=== PATIENT | female | born 1945 | race African-American/Black ===

== ENCOUNTER 2021-01-09 19:39 | Inpatient (IN) | payer MEDICARE, MEDICAID ==
[~2021-01-09] VITALS: Ht 162.6 cm; Wt 93.0 kg
[2021-01-09] MEDS ORDERED: SODIUM CHLORIDE 0.9% 1,000 ML IV ONE (20:00)
[2021-01-09] MEDS ORDERED: ALBUTEROL (0.083%) 2.5MG/3ML NEB HHN STA (20:03)
[2021-01-09] MEDS ORDERED: IPRATROPIUM BROMIDE (0.02%) 0.5MG/2.5ML NEB HHN STA (20:03)
[2021-01-09] MEDS ORDERED: PREDNISONE 20MG TABLET PO STA (20:03)
[2021-01-09] MEDS ORDERED: AZITHROMYCIN 500 MG in DEXT 5% WATER 250 ML IV SCH (20:15)
[2021-01-09] MEDS ORDERED: CEFTRIAXONE 1 G PREMIX 50 ML IV ONE (20:15)
[2021-01-09 20:28] LABS: BASOPHILS % 0.3 % (0.0-2.0); HEMATOCRIT. 42.9 % (36.0-48.0); HEMOGLOBIN. 14.7 g/dL (12.0-16.0); LYMPHOCYTES % 18.2 % (20.0-50.0); MEAN CORPUSCULAR HEMOGLOBIN 30.8 pg (28.0-32.0); MEAN CORPUSCULAR VOLUME 89.7 fL (81.0-99.0); MEAN PLATELET VOLUME 8.5 fl (7.4-10.4); MONOCYTES % 6.5 % (2.0-8.0); PLATELET 184 x1000/uL (130-400); RED BLOOD CELL COUNT 4.78 mill/uL (4.2-5.4); RED CELL DISTRIBUTION WIDTH 14.2 % (11.6-14.6)
[2021-01-09 20:30] LABS: CLARITY URINE CLEAR (CLEAR); COLOR URINE DARK YELLOW (YELLOW); KETONES URINE 1+ (NEGATIVE); LEUKOCYTE ESTERASE URINE NEGATIVE (NEGATIVE); NITRITE URINE NEGATIVE (NEGATIVE); OCCULT BLOOD URINE 2+ (NEGATIVE); PH URINE 5.5 (4.5-8.0); PROTEIN URINE 2+ (NEGATIVE); SPECIFIC GRAVITY URINE 1.023 (1.005-1.030)
[2021-01-09 20:43] LABS: CHLORIDE 107 mEq/L (98-107)
[2021-01-09 20:47] LABS: ETHANOL BLOOD < 10 mg/dL
[2021-01-09 20:52] LABS: CREATINE KINASE 208 IU/L (26-192)
[2021-01-09 21:05] LABS: *AMPHETAMINES SCREEN URINE NEGATIVE (NEGATIVE); *BARBITURATES SCREEN URINE NEGATIVE (NEGATIVE); *BENZODIAZEPINES SCREEN URINE NEGATIVE (NEGATIVE); *COCAINE SCREEN URINE NEGATIVE (NEGATIVE)
[2021-01-09 21:06] LABS: CANNABINOID URINE SCREEN NEGATIVE (NEGATIVE); METHADONE URINE SCREEN NEGATIVE (NEGATIVE); OPIATES URINE SCREEN NEGATIVE (NEGATIVE); PHENCYCLIDINE URINE SCREEN NEGATIVE (NEGATIVE)
[2021-01-09] MEDS ORDERED: SODIUM CHLORIDE 0.9% 500 ML IV ONE (22:00)
[2021-01-10 10:55] VITALS: BP 137/88
[2021-01-10] MEDS ORDERED: LISI-186 MT (11:23)
[2021-01-10] MEDS ORDERED: AMLO2.5T45 MT (11:23)
[2021-01-10] MEDS ORDERED: METF-414 MT (11:23)
[2021-01-10 12:00] VITALS: BP 137/88
[2021-01-10] MEDS ORDERED: DOCUSATE SODIUM 100MG CAPSULE PO PRN (12:00)
[2021-01-10] MEDS ORDERED: MAGNESIUM/ALUMINUM HYDROXIDE/SIMETHICONE 30ML UDC PO PRN (12:00)
[2021-01-10] MEDS ORDERED: CLONIDINE 0.1MG TABLET PO PRN (12:00)
[2021-01-10] MEDS ORDERED: ONDANSETRON HCL 4MG/2ML INJ IV PRN (12:00)
[2021-01-10] MEDS ORDERED: ALBUTEROL 6.7GM HFA INHALER ORI PRN (12:00)
[2021-01-10] MEDS: DEXAMETHASONE 4MG TABLET PO SCH (12:26)
[2021-01-10] MEDS: AZITHROMYCIN 500 MG TABLET PO SCH (12:26)
[2021-01-10] MEDS ORDERED: ENOXAPARIN 40MG/0.4ML SYR SUBCUT SCH (13:00)
[2021-01-10 16:00] VITALS: BP 147/96
[2021-01-10] MEDS ORDERED: GADOTERATE MEGLUMINE 5 MMOL/10 ML VIAL IV ONE (16:00)
[2021-01-10] MEDS ORDERED: SIMV5TAB58 MT (16:58)
[2021-01-10] MEDS ORDERED: LISI2.5T47 MT (16:58)
[2021-01-10] MEDS ORDERED: DEXTROSE 50% WATER 50ML SYRINGE IV PRN ×2 (19:30)
[2021-01-10 20:00] VITALS: BP 141/81
[2021-01-10] MEDS: BLOOD SUGAR DIAGNOSTIC STRIP TEST SCH (20:12)
[2021-01-10] MEDS: ENOXAPARIN 30MG/0.3ML SYR SUBCUT SCH (20:58)
[2021-01-10] MEDS: CEFTRIAXONE 1,000 MG in DEXTROSE 5% WATER 50 ML IV SCH (20:59)
[2021-01-10] MEDS: ACETAMINOPHEN 325MG TABLET PO PRN (20:59)
[2021-01-10] MEDS: ATORVASTATIN CALCIUM 10MG TABLET PO SCH (20:59)
[2021-01-10] MEDS: INSULIN LISPRO 100 UNITS/ML SUBCUT SCH (21:03)
[2021-01-11] VITALS: BP 137/85
[2021-01-11 04:00] VITALS: BP 151/108
[2021-01-11] MEDS: OMEPRAZOLE 20MG CAPSULE EXTENDED RELEASE PO SCH (06:45)
[2021-01-11] MEDS: BLOOD SUGAR DIAGNOSTIC STRIP TEST SCH ×4 (07:15→21:00)
[2021-01-11] MEDS: INSULIN LISPRO 100 UNITS/ML SUBCUT SCH ×4 (07:16→21:00)
[2021-01-11 07:33] LABS: BASOPHILS % 0.1 % (0.0-2.0); HEMATOCRIT. 42.1 % (36.0-48.0); HEMOGLOBIN. 13.9 g/dL (12.0-16.0); LYMPHOCYTES % 15.5 % (20.0-50.0); MEAN CORPUSCULAR HEMOGLOBIN 30.1 pg (28.0-32.0); MEAN CORPUSCULAR VOLUME 90.9 fL (81.0-99.0); MEAN PLATELET VOLUME 8.8 fl (7.4-10.4); MONOCYTES % 4.5 % (2.0-8.0); NEUTROPHILS % 79.9 % (40.0-76.0); PLATELET 173 x1000/uL (130-400); RED BLOOD CELL COUNT 4.63 mill/uL (4.2-5.4); RED CELL DISTRIBUTION WIDTH 14.5 % (11.6-14.6)
[2021-01-11 07:43] LABS: CHLORIDE 108 mEq/L (98-107)
[2021-01-11 07:59] VITALS: BP 124/82
[2021-01-11 08:00] LABS: LDL CHOLESTEROL 87 mg/dL (5-100); PHOSPHORUS 2.4 mg/dL (2.5-4.9)
[2021-01-11 08:01] LABS: T4 FREE 0.94 ng/dL (0.76-1.46)
[2021-01-11 08:02] LABS: HDL CHOLESTEROL 35 mg/dL (40-59)
[2021-01-11] MEDS: DEXAMETHASONE 4MG TABLET PO SCH (08:25)
[2021-01-11] MEDS: LISINOPRIL 2.5MG TABLET PO SCH (08:25)
[2021-01-11] MEDS: AZITHROMYCIN 500 MG TABLET PO SCH (08:25)
[2021-01-11] MEDS: ENOXAPARIN 30MG/0.3ML SYR SUBCUT SCH ×2 (08:25→21:18)
[2021-01-11] MEDS: ACETAMINOPHEN 325MG TABLET PO PRN ×2 (08:26→23:47)
[2021-01-11] MEDS: AMLODIPINE 2.5MG TABLET PO SCH (08:26)
[2021-01-11 12:00] VITALS: BP 113/72
[2021-01-11 16:00] VITALS: BP 118/64
[2021-01-11 20:00] VITALS: BP 124/104
[2021-01-11] MEDS: CEFTRIAXONE 1,000 MG in DEXTROSE 5% WATER 50 ML IV SCH (21:18)
[2021-01-11] MEDS: ATORVASTATIN CALCIUM 10MG TABLET PO SCH (21:18)
[2021-01-12] VITALS: BP 131/69
[2021-01-12 04:00] VITALS: BP 117/66
[2021-01-12] MEDS: BLOOD SUGAR DIAGNOSTIC STRIP TEST SCH ×4 (06:40→21:26)
[2021-01-12] MEDS: OMEPRAZOLE 20MG CAPSULE EXTENDED RELEASE PO SCH (06:41)
[2021-01-12 08:00] VITALS: BP 143/84
[2021-01-12] MEDS: INSULIN LISPRO 100 UNITS/ML SUBCUT SCH ×4 (08:10→21:00)
[2021-01-12] MEDS: AMLODIPINE 2.5MG TABLET PO SCH (08:41)
[2021-01-12] MEDS: AZITHROMYCIN 500 MG TABLET PO SCH (08:41)
[2021-01-12] MEDS: ENOXAPARIN 30MG/0.3ML SYR SUBCUT SCH ×2 (08:41→21:26)
[2021-01-12] MEDS: DEXAMETHASONE 6MG TABLET PO SCH (08:41)
[2021-01-12] MEDS: LISINOPRIL 2.5MG TABLET PO SCH (08:42)
[2021-01-12 10:44] LABS: BASOPHILS % 0.1 % (0.0-2.0); HEMATOCRIT. 39.9 % (36.0-48.0); HEMOGLOBIN. 13.3 g/dL (12.0-16.0); LYMPHOCYTES % 12.3 % (20.0-50.0); MEAN CORPUSCULAR HEMOGLOBIN 30.1 pg (28.0-32.0); MEAN CORPUSCULAR VOLUME 90.2 fL (81.0-99.0); MEAN PLATELET VOLUME 9.1 fl (7.4-10.4); MONOCYTES % 7.2 % (2.0-8.0); NEUTROPHILS % 80.4 % (40.0-76.0); PLATELET 191 x1000/uL (130-400); RED BLOOD CELL COUNT 4.43 mill/uL (4.2-5.4); RED CELL DISTRIBUTION WIDTH 14.3 % (11.6-14.6)
[2021-01-12 10:50] LABS: CHLORIDE 106 mEq/L (98-107)
[2021-01-12 12:00] VITALS: BP 125/70
[2021-01-12 16:00] VITALS: BP 106/82
[2021-01-12 20:00] VITALS: BP 151/90
[2021-01-12] MEDS: CEFTRIAXONE 1,000 MG in DEXTROSE 5% WATER 50 ML IV SCH (21:26)
[2021-01-12] MEDS: ATORVASTATIN CALCIUM 10MG TABLET PO SCH (21:26)
[2021-01-13 00:09] VITALS: BP 136/76
[2021-01-13 04:00] VITALS: BP 120/66
[2021-01-13] MEDS: OMEPRAZOLE 20MG CAPSULE EXTENDED RELEASE PO SCH (06:36)
[2021-01-13] MEDS: BLOOD SUGAR DIAGNOSTIC STRIP TEST SCH ×2 (07:40→12:12)
[2021-01-13 08:00] VITALS: BP 119/64
[2021-01-13] MEDS: INSULIN LISPRO 100 UNITS/ML SUBCUT SCH ×2 (08:10→12:33)
[2021-01-13] MEDS: LISINOPRIL 2.5MG TABLET PO SCH (08:26)
[2021-01-13] MEDS: DEXAMETHASONE 6MG TABLET PO SCH (08:27)
[2021-01-13] MEDS: AMLODIPINE 2.5MG TABLET PO SCH (08:27)
[2021-01-13] MEDS: ENOXAPARIN 30MG/0.3ML SYR SUBCUT SCH (08:27)
[2021-01-13] MEDS: AZITHROMYCIN 500 MG TABLET PO SCH (08:27)
[2021-01-13] MEDS ORDERED: ALBU6.7H9 ORI (08:47)
[2021-01-13 09:26] VITALS: BP 132/81
[2021-01-13 12:00] VITALS: BP 133/83
[2021-01-14] MEDS ORDERED: FAMOTIDINE 20MG TABLET PO SCH (09:00)
== END 2021-01-13 16:22 | disposition home or self-care (01) | DRG 177 ==
LOC: ER 19:39 → 7WST 22:01 → CANRESERV 23:57 → EDRESERV 23:57 → ENRESERV 23:57
PROVIDERS: ADMIT Internal Medicine; ATTEND Internal Medicine
DX: U07.1 COVID-19 (principal); J96.01 Acute respiratory failure with hypoxia; J12.82 Pneumonia due to coronavirus disease 2019; E44.0 Moderate protein-calorie malnutrition; E11.9 Type 2 diabetes mellitus without complications; E87.6 Hypokalemia; I10 Essential (primary) hypertension; W18.30XA Fall on same level, unspecified, initial encounter; D32.9 Benign neoplasm of meninges, unspecified; Z68.35 Body mass index [BMI] 35.0-35.9, adult; Y93.89 Activity, other specified; Y92.89 Other specified places as the place of occurrence of the external cause; Y99.8 Other external cause status
CPT/HCPCS: 36415; 70553; 71045; 80048; 80053; 80061; 80076; 80305; 80320; 81003; 82140; 82550; 82962; 83036; 83605; 83735; 83880; 84100; 84439; 84443; 84484; 85025; 86850; 86900; 87426; 93005; 93970; 94640; 99285; A9577; J0456; J0696; J1650; J1815; J7030; J7040; J7060; J7512; J8540; G0480

== ENCOUNTER 2021-01-16 10:14 | Inpatient (IN) | payer MEDICARE, MEDICAID ==
[~2021-01-16] VITALS: Ht 162.6 cm; Wt 106.1 kg
[~2021-01-16 10:14] MED LIST: ALBU6.7H9 ORI; AMLO2.5T45 MT; LISI2.5T47 MT; METF-414 MT; SIMV5TAB58 MT
[2021-01-16] MEDS ORDERED: IPRATROPIUM BROMIDE (0.02%) 0.5MG/2.5ML NEB HHN STA (10:33)
[2021-01-16] MEDS ORDERED: DEXAMETHASONE 4MG/ML 1ML VIAL IV ONE (10:45)
[2021-01-16] MEDS: ALBUTEROL (0.083%) 2.5MG/3ML NEB HHN SCH ×3 (10:45→12:02)
[2021-01-16 11:01] LABS: HEMOGLOBIN. 15.5 g/dL (12.0-16.0); MEAN CORPUSCULAR HEMOGLOBIN 30.7 pg (28.0-32.0); MEAN CORPUSCULAR VOLUME 90.8 fL (81.0-99.0); MEAN PLATELET VOLUME 8.1 fl (7.4-10.4); PLATELET 386 x1000/uL (130-400); RED BLOOD CELL COUNT 5.06 mill/uL (4.2-5.4); RED CELL DISTRIBUTION WIDTH 14.6 % (11.6-14.6)
[2021-01-16 11:04] LABS: CHLORIDE 104 mEq/L (98-107)
[2021-01-16 11:12] LABS: INR 1.2; PROTHROMBIN TIME 12.4 sec (9.6-11.0)
[2021-01-16] MEDS ORDERED: ASPIRIN 325MG EC TABLET PO SCH (11:45)
[2021-01-16] MEDS ORDERED: POTASSIUM CHLORIDE 20MEQ TABLET SR PO SCH (11:45)
[2021-01-16 12:00] LABS: PLATELET ESTIMATE NORMAL
[2021-01-16] MEDS ORDERED: PIPERACILLIN/TAZ 3.375G PREMIX 50 ML IV ONE (13:15)
[2021-01-16] MEDS ORDERED: ONDANSETRON HCL 4MG/2ML INJ IV PRN (14:15)
[2021-01-16 14:19] LABS: CLARITY URINE CLOUDY (CLEAR); COLOR URINE DARK YELLOW (YELLOW); KETONES URINE 1+ (NEGATIVE); LEUKOCYTE ESTERASE URINE 1+ (NEGATIVE); NITRITE URINE POSITIVE (NEGATIVE); OCCULT BLOOD URINE NEGATIVE (NEGATIVE); PH URINE 5.5 (4.5-8.0); PROTEIN URINE 2+ (NEGATIVE); SPECIFIC GRAVITY URINE 1.027 (1.005-1.030)
[2021-01-16] MEDS: ENOXAPARIN 40MG/0.4ML SYR SUBCUT SCH (14:50)
[2021-01-16 17:04] LABS: BG BASE EXCESS 0.9 mmol/L (-2.0-2.0); BG CARBOXYHEMOGLOBIN 0.8 % (0.5-1.5); BG DEOXYHEMOGLOBIN 3.6 % (0.0-5.0); BG FRACTION INSPIRED OXYGEN 80; BG HCO3 ACT 23.6 mmol/L (22.0-26.0); BG METHEMOGLOBIN 0.3 % (0.0-1.5); BG OXYGEN SATURATION 96.4 % (92.0-98.5); BG OXYHEMOGLOBIN 95.3 % (94.0-97.0); BG PCO2 32.3 mmHg (35.0-45.0); BG PH 7.481 (7.350-7.450); BG PO2 84.5 mmHg (75.0-100.0); BG SAMPLE SITE LEFT BRACHIAL; BG TOTAL HEMOGLOBIN 15.1 g/dL (12.0-18.0); BG TOTAL RESPIRATORY RATE 40 b/min; BG VENT MODE MASK - BIPAP
[2021-01-16] MEDS: ERGOCALCIFEROL 50000UNITS CAPSULE PO SCH (17:42)
[2021-01-16] MEDS: ALBUTEROL 6.7GM HFA INHALER ORI PRN (18:55)
[2021-01-16 21:00] VITALS: BP 134/90
[2021-01-16] MEDS: ASCORBIC ACID 500 MG TABLET PO SCH (22:10)
[2021-01-17] VITALS: BP 131/98
[2021-01-17] MEDS ORDERED: AMLO5TAB88 PO (00:39)
[2021-01-17] MEDS ORDERED: LISI40TA13 PO (00:39)
[2021-01-17] MEDS ORDERED: *PATIENT'S OWN MEDICATION STORAGE XX SCH (01:00)
[2021-01-17 04:00] VITALS: BP 118/85
[2021-01-17 08:00] VITALS: BP 133/91
[2021-01-17] MEDS ORDERED: CEFTRIAXONE 1 G PREMIX 50 ML IV SCH (08:45)
[2021-01-17] MEDS: ASCORBIC ACID 500 MG TABLET PO SCH ×2 (08:48→21:07)
[2021-01-17 08:49] LABS: BG BASE EXCESS 2.6 mmol/L (-2.0-2.0); BG CARBOXYHEMOGLOBIN 0.6 % (0.5-1.5); BG DEOXYHEMOGLOBIN 4.6 % (0.0-5.0); BG FRACTION INSPIRED OXYGEN 100; BG HCO3 ACT 26.1 mmol/L (22.0-26.0); BG METHEMOGLOBIN 0.4 % (0.0-1.5); BG OXYGEN SATURATION 95.4 % (92.0-98.5); BG OXYHEMOGLOBIN 94.4 % (94.0-97.0); BG PH 7.467 (7.350-7.450); BG PO2 75.1 mmHg (75.0-100.0); BG SAMPLE SITE RIGHT RADIAL; BG TOTAL RESPIRATORY RATE 34 b/min; BG VENT MODE MASK - BIPAP
[2021-01-17] MEDS ORDERED: DEXAMETHASONE 4MG TABLET PO SCH (09:00)
[2021-01-17 10:53] LABS: HEMATOCRIT. 43.6 % (36.0-48.0); HEMOGLOBIN. 14.3 g/dL (12.0-16.0); MEAN CORPUSCULAR HEMOGLOBIN 29.8 pg (28.0-32.0); MEAN CORPUSCULAR VOLUME 90.9 fL (81.0-99.0); MEAN PLATELET VOLUME 8.1 fl (7.4-10.4); PLATELET 393 x1000/uL (130-400); RED CELL DISTRIBUTION WIDTH 14.7 % (11.6-14.6)
[2021-01-17 11:02] LABS: CHLORIDE 108 mEq/L (98-107)
[2021-01-17] MEDS: CEFTRIAXONE 1,000 MG in DEXTROSE 5% WATER 50 ML IV SCH (11:34)
[2021-01-17 12:00] VITALS: BP 107/80
[2021-01-17] MEDS: ENOXAPARIN 40MG/0.4ML SYR SUBCUT SCH (14:21)
[2021-01-17 16:00] VITALS: BP 129/91
[2021-01-17 16:56] LABS: PLATELET ESTIMATE NORMAL
[2021-01-17 20:00] VITALS: BP 174/118
[2021-01-17] MEDS: CLONIDINE 0.1MG TABLET PO PRN (21:07)
[2021-01-17] MEDS: ZOLPIDEM TARTRATE 5MG TABLET PO PRN (21:07)
[2021-01-17] MEDS: ACETAMINOPHEN 325MG TABLET PO PRN (21:07)
[2021-01-17] MEDS ORDERED: GUAIFENESIN-DM 200MG-20MG/10ML UDC PO PRN (22:45)
[2021-01-18] VITALS: BP 130/87
[2021-01-18 04:00] VITALS: BP 141/98
[2021-01-18 08:00] VITALS: BP 161/106
[2021-01-18] MEDS: ASCORBIC ACID 500 MG TABLET PO SCH ×2 (10:05→20:15)
[2021-01-18] MEDS: CEFTRIAXONE 1,000 MG in DEXTROSE 5% WATER 50 ML IV SCH (10:05)
[2021-01-18] MEDS: DEXAMETHASONE 10 MG/ML VIAL IV SCH (10:06)
[2021-01-18] MEDS: CLONIDINE 0.1MG TABLET PO PRN ×2 (10:06→16:56)
[2021-01-18 12:00] VITALS: BP 130/64
[2021-01-18 16:00] VITALS: BP 165/88
[2021-01-18] MEDS: ENOXAPARIN 40MG/0.4ML SYR SUBCUT SCH (16:56)
[2021-01-18] MEDS: ALBUTEROL 6.7GM HFA INHALER ORI PRN (16:57)
[2021-01-18 20:00] VITALS: BP 89/42
[2021-01-18] MEDS: ACETAMINOPHEN 325MG TABLET PO PRN (23:35)
[2021-01-19] VITALS: BP 142/96
[2021-01-19 04:00] VITALS: BP 133/91
[2021-01-19 08:00] VITALS: BP 147/86
[2021-01-19] MEDS: DEXAMETHASONE 10 MG/ML VIAL IV SCH (09:50)
[2021-01-19] MEDS: ASCORBIC ACID 500 MG TABLET PO SCH ×2 (09:50→20:49)
[2021-01-19 12:00] VITALS: BP 139/82
[2021-01-19] MEDS: ENOXAPARIN 30MG/0.3ML SYR SUBCUT SCH ×2 (12:10→20:50)
[2021-01-19] MEDS: CEFTRIAXONE 1,000 MG in DEXTROSE 5% WATER 50 ML IV SCH (12:10)
[2021-01-19 16:00] VITALS: BP 129/86
[2021-01-19 20:00] VITALS: BP 159/103
[2021-01-19] MEDS: CLONIDINE 0.1MG TABLET PO PRN (20:50)
[2021-01-20] VITALS: BP 134/95
[2021-01-20] MEDS: ZOLPIDEM TARTRATE 5MG TABLET PO PRN (00:57)
[2021-01-20 04:00] VITALS: BP 131/79
[2021-01-20 08:00] VITALS: BP 142/95
[2021-01-20] MEDS: ENOXAPARIN 30MG/0.3ML SYR SUBCUT SCH ×2 (09:53→20:25)
[2021-01-20] MEDS: DEXAMETHASONE 10 MG/ML VIAL IV SCH (09:54)
[2021-01-20] MEDS: ASCORBIC ACID 500 MG TABLET PO SCH ×2 (09:54→20:25)
[2021-01-20] MEDS: CEFTRIAXONE 1,000 MG in DEXTROSE 5% WATER 50 ML IV SCH (11:37)
[2021-01-20 12:00] VITALS: BP 136/95
[2021-01-20 16:00] VITALS: BP 133/90
[2021-01-20 20:00] VITALS: BP 136/91
[2021-01-21] VITALS: BP 160/99
[2021-01-21] MEDS: ZOLPIDEM TARTRATE 5MG TABLET PO PRN (01:42)
[2021-01-21 04:00] VITALS: BP 117/66
[2021-01-21 08:00] VITALS: BP 165/103
[2021-01-21] MEDS: ENOXAPARIN 30MG/0.3ML SYR SUBCUT SCH ×2 (09:28→21:51)
[2021-01-21] MEDS: DEXAMETHASONE 10 MG/ML VIAL IV SCH (09:28)
[2021-01-21] MEDS: ASCORBIC ACID 500 MG TABLET PO SCH ×2 (09:28→21:52)
[2021-01-21] MEDS: CEFTRIAXONE 1,000 MG in DEXTROSE 5% WATER 50 ML IV SCH (11:51)
[2021-01-21 12:00] VITALS: BP 155/103
[2021-01-21 16:00] VITALS: BP 141/75
[2021-01-21 20:00] VITALS: BP 125/72
[2021-01-22] VITALS: BP 116/65
[2021-01-22 04:00] VITALS: BP 143/96
[2021-01-22 06:52] LABS: CHLORIDE 120 mEq/L (98-107)
[2021-01-22 07:35] LABS: HEMATOCRIT. 53.6 % (36.0-48.0); HEMOGLOBIN. 16.1 g/dL (12.0-16.0); MEAN CORPUSCULAR HEMOGLOBIN 30.1 pg (28.0-32.0); MEAN CORPUSCULAR VOLUME 100.3 fL (81.0-99.0); MEAN PLATELET VOLUME 8.9 fl (7.4-10.4); PLATELET 242 x1000/uL (130-400); RED BLOOD CELL COUNT 5.34 mill/uL (4.2-5.4); RED CELL DISTRIBUTION WIDTH 16.3 % (11.6-14.6)
[2021-01-22 08:00] VITALS: BP 145/95
[2021-01-22] MEDS: ASCORBIC ACID 500 MG TABLET PO SCH ×2 (08:10→22:04)
[2021-01-22] MEDS: DEXAMETHASONE 10 MG/ML VIAL IV SCH (08:10)
[2021-01-22] MEDS: ENOXAPARIN 30MG/0.3ML SYR SUBCUT SCH ×2 (08:11→22:06)
[2021-01-22] MEDS: CEFTRIAXONE 1,000 MG in DEXTROSE 5% WATER 50 ML IV SCH (11:32)
[2021-01-22 12:00] VITALS: BP 142/94
[2021-01-22 16:00] VITALS: BP 127/82
[2021-01-22] MEDS: DEXTROSE 5% WATER 1,000 ML IV SCH (17:18)
[2021-01-22 20:00] VITALS: BP 148/101
[2021-01-22 21:33] LABS: NUCLEATED RED BLOOD CELLS 1 /100 WBC; PLATELET ESTIMATE NORMAL
[2021-01-22] MEDS: ACETAMINOPHEN 325MG TABLET PO PRN (22:31)
[2021-01-23] VITALS (7 sets, daily range): BP systolic 143–159; BP diastolic 90–106
[2021-01-23] MEDS: ASCORBIC ACID 500 MG TABLET PO SCH ×2 (08:43→21:32)
[2021-01-23] MEDS: DEXAMETHASONE 10 MG/ML VIAL IV SCH (08:43)
[2021-01-23] MEDS: ENOXAPARIN 30MG/0.3ML SYR SUBCUT SCH ×2 (08:43→21:32)
[2021-01-23] MEDS: ALBUTEROL 6.7GM HFA INHALER ORI PRN (08:44)
[2021-01-23 08:54] LABS: BG BASE EXCESS 4.6 mmol/L (-2.0-2.0); BG CARBOXYHEMOGLOBIN 0.7 % (0.5-1.5); BG FRACTION INSPIRED OXYGEN 100; BG HCO3 ACT 28.3 mmol/L (22.0-26.0); BG METHEMOGLOBIN 0.1 % (0.0-1.5); BG OXYHEMOGLOBIN 95.2 % (94.0-97.0); BG PCO2 38.9 mmHg (35.0-45.0); BG PH 7.479 (7.350-7.450); BG PO2 77.8 mmHg (75.0-100.0); BG SAMPLE SITE RIGHT RADIAL; BG TOTAL HEMOGLOBIN 15.4 g/dL (12.0-18.0); BG VENT MODE MASK - BIPAP
[2021-01-23 10:14] LABS: CHLORIDE 119 mEq/L (98-107)
[2021-01-23] MEDS: DEXTROSE 5% WATER 1,000 ML IV SCH (12:30)
[2021-01-23] MEDS: ERGOCALCIFEROL 50000UNITS CAPSULE PO SCH (15:54)
[2021-01-24] VITALS (26 sets, daily range): BP systolic 40–185; BP diastolic 24–116
[2021-01-24 07:25] LABS: HEMATOCRIT. 51.5 % (36.0-48.0); MEAN CORPUSCULAR HEMOGLOBIN 29.7 pg (28.0-32.0); MEAN CORPUSCULAR VOLUME 95.8 fL (81.0-99.0); MEAN PLATELET VOLUME 8.9 fl (7.4-10.4); PLATELET 280 x1000/uL (130-400); RED BLOOD CELL COUNT 5.38 mill/uL (4.2-5.4); RED CELL DISTRIBUTION WIDTH 15.4 % (11.6-14.6)
[2021-01-24 07:37] LABS: CHLORIDE 119 mEq/L (98-107)
[2021-01-24] MEDS ORDERED: SUCCINYLCHOLINE CHLORIDE 200MG/10ML IV ONE (08:37)
[2021-01-24] MEDS ORDERED: ETOMIDATE 2MG/ML 10ML VIAL IV ONE (08:37)
[2021-01-24] MEDS: DEXTROSE 5% WATER 1,000 ML IV SCH (09:35)
[2021-01-24] MEDS: ASCORBIC ACID 500 MG TABLET PO SCH ×2 (09:35→21:00)
[2021-01-24] MEDS: ACETAMINOPHEN 325MG TABLET PO PRN (09:36)
[2021-01-24] MEDS: ENOXAPARIN 30MG/0.3ML SYR SUBCUT SCH ×2 (09:36→21:55)
[2021-01-24] MEDS: DEXAMETHASONE 10 MG/ML VIAL IV SCH (11:13)
[2021-01-24 19:44] LABS: BG BASE EXCESS 3.4 mmol/L (-2.0-2.0); BG CARBOXYHEMOGLOBIN 1.3 % (0.5-1.5); BG DEOXYHEMOGLOBIN 7.5 % (0.0-5.0); BG FRACTION INSPIRED OXYGEN 100; BG HCO3 ACT 28.6 mmol/L (22.0-26.0); BG METHEMOGLOBIN 0.5 % (0.0-1.5); BG OXYGEN SATURATION 92.4 % (92.0-98.5); BG OXYHEMOGLOBIN 90.7 % (94.0-97.0); BG PCO2 45.3 mmHg (35.0-45.0); BG PH 7.418 (7.350-7.450); BG PO2 64.8 mmHg (75.0-100.0); BG SAMPLE SITE RIGHT RADIAL; BG TOTAL HEMOGLOBIN 15.9 g/dL (12.0-18.0); BG TOTAL RESPIRATORY RATE 46 b/min; BG VENT MODE MASK - BIPAP
[2021-01-24] MEDS: PROPOFOL 10MG/ML 100ML 100 ML IV PRN (21:17)
[2021-01-24] MEDS: PHENYLEPHRINE 100 MG in DEXT 5% WATER 240 ML IV PRN (21:20)
[2021-01-24 22:26] LABS: PLATELET ESTIMATE NORMAL
[2021-01-24 23:23] LABS: BG BASE EXCESS -2.7 mmol/L (-2.0-2.0); BG CARBOXYHEMOGLOBIN 0.9 % (0.5-1.5); BG DEOXYHEMOGLOBIN 2.6 % (0.0-5.0); BG FRACTION INSPIRED OXYGEN 100; BG HCO3 ACT 22.4 mmol/L (22.0-26.0); BG METHEMOGLOBIN 0.5 % (0.0-1.5); BG OXYGEN SATURATION 97.4 % (92.0-98.5); BG PH 7.366 (7.350-7.450); BG PO2 100.9 mmHg (75.0-100.0); BG SAMPLE SITE RIGHT RADIAL; BG TOTAL HEMOGLOBIN 15.6 g/dL (12.0-18.0); BG VENT MODE VENT - AC
[2021-01-25] VITALS (97 sets, daily range): BP systolic 55–145; BP diastolic 25–104
[2021-01-25] MEDS: PROPOFOL 10MG/ML 100ML 100 ML IV PRN (00:43)
[2021-01-25] MEDS: NOREPINEPHRINE 32 MG in DEXT 5% WATER 218 ML IV PRN (00:45)
[2021-01-25] MEDS: VASOPRESSIN 20 UNIT in SODIUM CHLORIDE 0.9% 99 ML IV PRN ×2 (01:39→08:37)
[2021-01-25] MEDS: FENTANYL CITRATE/PF 2,500 MCG in SODIUM CHLORIDE 0.9% 200 ML IV PRN (01:49)
[2021-01-25] MEDS: MIDAZOLAM HCL 100 MG in SODIUM CHLORIDE 0.9% 80 ML IV PRN ×2 (01:50→16:32)
[2021-01-25] MEDS: DEXTROSE 5% WATER 1,000 ML IV SCH ×2 (03:58→20:27)
[2021-01-25] MEDS: PHENYLEPHRINE 100 MG in DEXT 5% WATER 240 ML IV PRN ×2 (04:21→17:51)
[2021-01-25] MEDS: IPRATROPIUM/ALBUTEROL 0.5-3(2.5)MG/3ML NEB HHN SCH ×5 (04:40→20:30)
[2021-01-25 07:52] LABS: BG BASE EXCESS 0.7 mmol/L (-2.0-2.0); BG CARBOXYHEMOGLOBIN 0.4 % (0.5-1.5); BG DEOXYHEMOGLOBIN 8.6 % (0.0-5.0); BG HCO3 ACT 24.6 mmol/L (22.0-26.0); BG METHEMOGLOBIN 0.2 % (0.0-1.5); BG OXYGEN SATURATION 91.3 % (92.0-98.5); BG OXYHEMOGLOBIN 90.8 % (94.0-97.0); BG PCO2 37.4 mmHg (35.0-45.0); BG PH 7.436 (7.350-7.450); BG PO2 59.4 mmHg (75.0-100.0); BG SAMPLE SITE RIGHT RADIAL; BG TOTAL HEMOGLOBIN 15.1 g/dL (12.0-18.0); BG VENT MODE VENT - AC
[2021-01-25] MEDS: ASCORBIC ACID 500 MG TABLET PO SCH ×2 (08:37→20:28)
[2021-01-25] MEDS: DEXAMETHASONE 10 MG/ML VIAL IV SCH (08:37)
[2021-01-25] MEDS: ENOXAPARIN 30MG/0.3ML SYR SUBCUT SCH (08:38)
[2021-01-25 09:15] LABS: BASOPHILS % 0.2 % (0.0-2.0); EOSINOPHILS % 0.3 % (0.0-5.0); HEMATOCRIT. 44.1 % (36.0-48.0); HEMOGLOBIN. 14.2 g/dL (12.0-16.0); LYMPHOCYTES % 9.6 % (20.0-50.0); MEAN CORPUSCULAR HEMOGLOBIN 30.6 pg (28.0-32.0); MEAN PLATELET VOLUME 9.2 fl (7.4-10.4); MONOCYTES % 3.2 % (2.0-8.0); NEUTROPHILS % 86.7 % (40.0-76.0); PLATELET 247 x1000/uL (130-400); RED BLOOD CELL COUNT 4.65 mill/uL (4.2-5.4); RED CELL DISTRIBUTION WIDTH 15.1 % (11.6-14.6)
[2021-01-25] MEDS: PANTOPRAZOLE SODIUM 40 MG/VIAL IV SCH (10:15)
[2021-01-25] MEDS: ACETAMINOPHEN 325MG TABLET PO PRN ×2 (10:16→18:23)
[2021-01-25] MEDS: CEFEPIME 1,000 MG in DEXTROSE 5% WATER 50 ML IV SCH (13:17)
[2021-01-26] VITALS (98 sets, daily range): BP systolic 89–164; BP diastolic 54–105
[2021-01-26] MEDS: CEFEPIME 1,000 MG in DEXTROSE 5% WATER 50 ML IV SCH ×2 (00:17→12:12)
[2021-01-26] MEDS: PHENYLEPHRINE 100 MG in DEXT 5% WATER 240 ML IV PRN ×3 (00:39→20:45)
[2021-01-26] MEDS: IPRATROPIUM/ALBUTEROL 0.5-3(2.5)MG/3ML NEB HHN SCH ×6 (00:41→21:19)
[2021-01-26] MEDS: ACETAMINOPHEN 325MG TABLET PO PRN ×2 (03:22→10:21)
[2021-01-26 05:51] LABS: HEMOGLOBIN. 13.5 g/dL (12.0-16.0); MEAN CORPUSCULAR HEMOGLOBIN 30.4 pg (28.0-32.0); MEAN CORPUSCULAR VOLUME 94.1 fL (81.0-99.0); MEAN PLATELET VOLUME 9.7 fl (7.4-10.4); PLATELET 171 x1000/uL (130-400); RED BLOOD CELL COUNT 4.46 mill/uL (4.2-5.4); RED CELL DISTRIBUTION WIDTH 14.9 % (11.6-14.6)
[2021-01-26] MEDS: ASCORBIC ACID 500 MG TABLET PO SCH ×2 (08:00→20:22)
[2021-01-26] MEDS: PANTOPRAZOLE SODIUM 40 MG/VIAL IV SCH (08:00)
[2021-01-26] MEDS: DEXAMETHASONE 10 MG/ML VIAL IV SCH (08:00)
[2021-01-26] MEDS: ENOXAPARIN 40MG/0.4ML SYR SUBCUT SCH (08:01)
[2021-01-26] MEDS: MIDAZOLAM HCL 100 MG in SODIUM CHLORIDE 0.9% 80 ML IV PRN ×2 (08:28→20:44)
[2021-01-26 09:27] LABS: BG BASE EXCESS -0.8 mmol/L (-2.0-2.0); BG CARBOXYHEMOGLOBIN 0.9 % (0.5-1.5); BG FRACTION INSPIRED OXYGEN 100; BG HCO3 ACT 27.5 mmol/L (22.0-26.0); BG METHEMOGLOBIN 0.2 % (0.0-1.5); BG OXYHEMOGLOBIN 95.9 % (94.0-97.0); BG PCO2 61.3 mmHg (35.0-45.0); BG PO2 102.3 mmHg (75.0-100.0); BG SAMPLE SITE LEFT RADIAL; BG TOTAL HEMOGLOBIN 14.3 g/dL (12.0-18.0); BG TOTAL RESPIRATORY RATE 16 b/min; BG VENT MODE VENT - AC
[2021-01-26] MEDS: FENTANYL CITRATE/PF 2,500 MCG in SODIUM CHLORIDE 0.9% 200 ML IV PRN (09:42)
[2021-01-26] MEDS: DEXTROSE 5% WATER 1,000 ML IV SCH ×2 (10:21→20:22)
[2021-01-26] MEDS ORDERED: BISACODYL 5MG TABLET PO NR (11:30)
[2021-01-26] MEDS ORDERED: BISACODYL 10MG SUPP PR SCH (12:00)
[2021-01-26 14:02] LABS: PLATELET ESTIMATE NORMAL
[2021-01-27] VITALS (98 sets, daily range): BP systolic 86–154; BP diastolic 48–96
[2021-01-27] MEDS: CEFEPIME 1,000 MG in DEXTROSE 5% WATER 50 ML IV SCH ×2 (00:02→12:37)
[2021-01-27] MEDS: IPRATROPIUM/ALBUTEROL 0.5-3(2.5)MG/3ML NEB HHN SCH ×6 (00:42→21:16)
[2021-01-27] MEDS: FENTANYL CITRATE/PF 2,500 MCG in SODIUM CHLORIDE 0.9% 200 ML IV PRN ×2 (02:38→22:43)
[2021-01-27] MEDS: NOREPINEPHRINE 32 MG in DEXT 5% WATER 218 ML IV PRN (03:39)
[2021-01-27 05:23] LABS: HEMATOCRIT. 39.7 % (36.0-48.0); MEAN CORPUSCULAR HEMOGLOBIN 30.6 pg (28.0-32.0); MEAN CORPUSCULAR VOLUME 93.1 fL (81.0-99.0); PLATELET 142 x1000/uL (130-400); RED BLOOD CELL COUNT 4.26 mill/uL (4.2-5.4); RED CELL DISTRIBUTION WIDTH 14.6 % (11.6-14.6)
[2021-01-27 05:30] LABS: CHLORIDE 106 mEq/L (98-107)
[2021-01-27] MEDS: MIDAZOLAM HCL 100 MG in SODIUM CHLORIDE 0.9% 80 ML IV PRN ×2 (06:44→20:40)
[2021-01-27 07:21] LABS: PLATELET ESTIMATE NORMAL
[2021-01-27] MEDS: ENOXAPARIN 40MG/0.4ML SYR SUBCUT SCH (08:12)
[2021-01-27] MEDS: PANTOPRAZOLE SODIUM 40 MG/VIAL IV SCH (08:13)
[2021-01-27] MEDS: DEXAMETHASONE 10 MG/ML VIAL IV SCH (08:13)
[2021-01-27] MEDS: ASCORBIC ACID 500 MG TABLET PO SCH ×2 (08:13→21:32)
[2021-01-27] MEDS ORDERED: BISACODYL 5MG TABLET PO PRN (09:00)
[2021-01-27 10:22] LABS: BG SAMPLE SITE L RAD; BG TIDAL VOLUME(mL) 500 mL; BG TOTAL RESPIRATORY RATE 20 b/min; BG VENT MODE VENT/AC; BG VENT RATE 20 set
[2021-01-27 10:23] LABS: BG PCO2 64.9 mmHg (35.0-45.0); BG PH 7.265 (7.350-7.450); BG PO2 167.8 mmHg (75.0-100.0)
[2021-01-27 10:24] LABS: BG BASE EXCESS 0.3 mmol/L (-2.0-2.0); BG CARBOXYHEMOGLOBIN 1.3 % (0.5-1.5); BG HCO3 ACT 28.8 mmol/L (22.0-26.0); BG OXYGEN SATURATION 99.3 % (92.0-98.5); BG OXYHEMOGLOBIN 97.5 % (94.0-97.0); BG TOTAL HEMOGLOBIN 13.5 g/dL (12.0-18.0)
[2021-01-27 10:25] LABS: BG METHEMOGLOBIN 0.5 % (0.0-1.5)
[2021-01-27] MEDS: DEXTROSE 5% WATER 1,000 ML IV SCH ×2 (12:05→21:32)
[2021-01-27] MEDS: METOCLOPRAMIDE HCL 10MG/2ML VIAL IV SCH ×2 (12:37→18:00)
[2021-01-27] MEDS ORDERED: DEXTROSE 50% WATER 50ML SYRINGE IV PRN (15:00)
[2021-01-27] MEDS ORDERED: INSULIN LISPRO 100 UNITS/ML SUBCUT SCH (17:00)
[2021-01-27] MEDS: BLOOD SUGAR DIAGNOSTIC STRIP TEST SCH (17:14)
[2021-01-27] MEDS: BISACODYL 10MG SUPP PR PRN (17:59)
[2021-01-27] MEDS: INSULIN LISPRO 100 UNITS/ML SUBCUT SCH (18:02)
[2021-01-28] VITALS (89 sets, daily range): BP systolic 85–168; BP diastolic 24–93
[2021-01-28] MEDS: BLOOD SUGAR DIAGNOSTIC STRIP TEST SCH ×4 (00:12→18:13)
[2021-01-28] MEDS: CEFEPIME 1,000 MG in DEXTROSE 5% WATER 50 ML IV SCH ×2 (00:18→14:35)
[2021-01-28] MEDS: METOCLOPRAMIDE HCL 10MG/2ML VIAL IV SCH ×4 (00:18→18:17)
[2021-01-28] MEDS: INSULIN LISPRO 100 UNITS/ML SUBCUT SCH ×4 (00:19→18:16)
[2021-01-28] MEDS: IPRATROPIUM/ALBUTEROL 0.5-3(2.5)MG/3ML NEB HHN SCH ×5 (00:25→21:03)
[2021-01-28 05:29] LABS: HEMATOCRIT. 35.9 % (36.0-48.0); HEMOGLOBIN. 11.7 g/dL (12.0-16.0); MEAN CORPUSCULAR VOLUME 92.2 fL (81.0-99.0); PLATELET 145 x1000/uL (130-400); RED BLOOD CELL COUNT 3.89 mill/uL (4.2-5.4); RED CELL DISTRIBUTION WIDTH 14.1 % (11.6-14.6)
[2021-01-28 05:31] LABS: CHLORIDE 107 mEq/L (98-107)
[2021-01-28] MEDS: NOREPINEPHRINE 32 MG in DEXT 5% WATER 218 ML IV PRN (05:43)
[2021-01-28 07:08] LABS: PLATELET ESTIMATE NORMAL
[2021-01-28] MEDS: ENOXAPARIN 40MG/0.4ML SYR SUBCUT SCH (08:36)
[2021-01-28] MEDS: ASCORBIC ACID 500 MG TABLET PO SCH ×2 (08:36→21:15)
[2021-01-28] MEDS: DEXAMETHASONE 10 MG/ML VIAL IV SCH (08:36)
[2021-01-28] MEDS: PANTOPRAZOLE SODIUM 40 MG/VIAL IV SCH (08:36)
[2021-01-28 09:45] LABS: BG BASE EXCESS 2.5 mmol/L (-2.0-2.0); BG CARBOXYHEMOGLOBIN 0.7 % (0.5-1.5); BG DEOXYHEMOGLOBIN 2.7 % (0.0-5.0); BG FRACTION INSPIRED OXYGEN 70; BG HCO3 ACT 29.4 mmol/L (22.0-26.0); BG METHEMOGLOBIN 0.4 % (0.0-1.5); BG OXYGEN SATURATION 97.3 % (92.0-98.5); BG OXYHEMOGLOBIN 96.2 % (94.0-97.0); BG PCO2 55.6 mmHg (35.0-45.0); BG PH 7.341 (7.350-7.450); BG PO2 100.1 mmHg (75.0-100.0); BG SAMPLE SITE LEFT RADIAL; BG TOTAL HEMOGLOBIN 12.5 g/dL (12.0-18.0); BG VENT MODE VENT - AC
[2021-01-28] MEDS: DEXTROSE 5% WATER 1,000 ML IV SCH ×2 (09:45→23:12)
[2021-01-28] MEDS: DOCUSATE SODIUM SUGAR FREE 100MG/10ML UDC NG SCH (10:00)
[2021-01-28] MEDS: MIDAZOLAM HCL 100 MG in SODIUM CHLORIDE 0.9% 80 ML IV PRN (10:08)
[2021-01-28] MEDS: INSULIN GLARGINE UD 100 UNITS/ML SYR SUBCUT SCH ×2 (11:44→21:16)
[2021-01-28] MEDS: FENTANYL CITRATE/PF 2,500 MCG in SODIUM CHLORIDE 0.9% 200 ML IV PRN (11:46)
[2021-01-28] MEDS: MIDODRINE HCL 5MG TABLET PO SCH ×2 (14:35→16:40)
[2021-01-29] VITALS (94 sets, daily range): BP systolic 89–125; BP diastolic 53–73
[2021-01-29] MEDS: IPRATROPIUM/ALBUTEROL 0.5-3(2.5)MG/3ML NEB HHN SCH ×6 (01:03→21:04)
[2021-01-29] MEDS: METOCLOPRAMIDE HCL 10MG/2ML VIAL IV SCH ×4 (01:31→18:00)
[2021-01-29] MEDS: CEFEPIME 1,000 MG in DEXTROSE 5% WATER 50 ML IV SCH ×2 (02:02→12:05)
[2021-01-29] MEDS: MIDAZOLAM HCL 100 MG in SODIUM CHLORIDE 0.9% 80 ML IV PRN ×2 (05:00→23:12)
[2021-01-29 05:38] LABS: CHLORIDE 105 mEq/L (98-107)
[2021-01-29 05:39] LABS: HEMATOCRIT. 33.3 % (36.0-48.0); HEMOGLOBIN. 10.9 g/dL (12.0-16.0); MEAN CORPUSCULAR HEMOGLOBIN 30.1 pg (28.0-32.0); MEAN CORPUSCULAR VOLUME 91.9 fL (81.0-99.0); MEAN PLATELET VOLUME 9.8 fl (7.4-10.4); PLATELET 142 x1000/uL (130-400); RED BLOOD CELL COUNT 3.62 mill/uL (4.2-5.4); RED CELL DISTRIBUTION WIDTH 13.9 % (11.6-14.6)
[2021-01-29] MEDS: BLOOD SUGAR DIAGNOSTIC STRIP TEST SCH ×4 (06:22→18:23)
[2021-01-29] MEDS: INSULIN LISPRO 100 UNITS/ML SUBCUT SCH ×4 (06:23→18:00)
[2021-01-29 07:51] LABS: PLATELET ESTIMATE NORMAL
[2021-01-29 07:59] LABS: BG BASE EXCESS 1.7 mmol/L (-2.0-2.0); BG CARBOXYHEMOGLOBIN 0.5 % (0.5-1.5); BG DEOXYHEMOGLOBIN 8.7 % (0.0-5.0); BG HCO3 ACT 28.2 mmol/L (22.0-26.0); BG METHEMOGLOBIN 0.3 % (0.0-1.5); BG OXYGEN SATURATION 91.2 % (92.0-98.5); BG OXYHEMOGLOBIN 90.5 % (94.0-97.0); BG PCO2 52.5 mmHg (35.0-45.0); BG PH 7.348 (7.350-7.450); BG PO2 61.2 mmHg (75.0-100.0); BG SAMPLE SITE RIGHT RADIAL; BG TOTAL HEMOGLOBIN 12.7 g/dL (12.0-18.0); BG VENT MODE VENT - AC
[2021-01-29] MEDS: FENTANYL CITRATE/PF 2,500 MCG in SODIUM CHLORIDE 0.9% 200 ML IV PRN (08:07)
[2021-01-29] MEDS: PANTOPRAZOLE SODIUM 40 MG/VIAL IV SCH (08:14)
[2021-01-29] MEDS: DEXAMETHASONE 10 MG/ML VIAL IV SCH (08:14)
[2021-01-29] MEDS: ENOXAPARIN 40MG/0.4ML SYR SUBCUT SCH (08:14)
[2021-01-29] MEDS: DOCUSATE SODIUM SUGAR FREE 100MG/10ML UDC NG SCH (08:14)
[2021-01-29] MEDS: ASCORBIC ACID 500 MG TABLET PO SCH ×2 (08:14→22:07)
[2021-01-29] MEDS: MIDODRINE HCL 5MG TABLET PO SCH ×3 (08:14→18:00)
[2021-01-29] MEDS: INSULIN GLARGINE UD 100 UNITS/ML SYR SUBCUT SCH ×2 (09:48→22:08)
[2021-01-29] MEDS: DEXTROSE 5% WATER 1,000 ML IV SCH ×2 (12:14→23:13)
[2021-01-30] VITALS (94 sets, daily range): BP systolic 97–126; BP diastolic 50–75
[2021-01-30] MEDS: METOCLOPRAMIDE HCL 10MG/2ML VIAL IV SCH ×5 (00:33→23:25)
[2021-01-30] MEDS: BLOOD SUGAR DIAGNOSTIC STRIP TEST SCH ×5 (00:33→23:36)
[2021-01-30] MEDS: INSULIN LISPRO 100 UNITS/ML SUBCUT SCH ×5 (00:45→23:35)
[2021-01-30] MEDS: CEFEPIME 1,000 MG in DEXTROSE 5% WATER 50 ML IV SCH ×2 (01:00→12:51)
[2021-01-30] MEDS: IPRATROPIUM/ALBUTEROL 0.5-3(2.5)MG/3ML NEB HHN SCH ×6 (01:37→20:49)
[2021-01-30] MEDS: FENTANYL CITRATE/PF 2,500 MCG in SODIUM CHLORIDE 0.9% 200 ML IV PRN ×2 (05:10→22:00)
[2021-01-30 05:45] LABS: HEMATOCRIT. 32.9 % (36.0-48.0); HEMOGLOBIN. 10.8 g/dL (12.0-16.0); MEAN CORPUSCULAR VOLUME 91.6 fL (81.0-99.0); MEAN PLATELET VOLUME 9.4 fl (7.4-10.4); PLATELET 158 x1000/uL (130-400); RED BLOOD CELL COUNT 3.59 mill/uL (4.2-5.4); RED CELL DISTRIBUTION WIDTH 14.3 % (11.6-14.6)
[2021-01-30 05:51] LABS: CHLORIDE 104 mEq/L (98-107)
[2021-01-30 08:08] LABS: BG BASE EXCESS 1.9 mmol/L (-2.0-2.0); BG CARBOXYHEMOGLOBIN 0.6 % (0.5-1.5); BG DEOXYHEMOGLOBIN 9.9 % (0.0-5.0); BG HCO3 ACT 27.8 mmol/L (22.0-26.0); BG METHEMOGLOBIN 0.3 % (0.0-1.5); BG OXYHEMOGLOBIN 89.2 % (94.0-97.0); BG PCO2 48.7 mmHg (35.0-45.0); BG PH 7.374 (7.350-7.450); BG PO2 57.9 mmHg (75.0-100.0); BG SAMPLE SITE LEFT RADIAL; BG TOTAL HEMOGLOBIN 12.3 g/dL (12.0-18.0); BG VENT MODE VENT - AC
[2021-01-30 09:38] LABS: PLATELET ESTIMATE NORMAL
[2021-01-30] MEDS: PANTOPRAZOLE SODIUM 40 MG/VIAL IV SCH (10:00)
[2021-01-30] MEDS: DEXAMETHASONE 10 MG/ML VIAL IV SCH (10:01)
[2021-01-30] MEDS: MIDODRINE HCL 5MG TABLET PO SCH ×3 (10:02→18:29)
[2021-01-30] MEDS: ASCORBIC ACID 500 MG TABLET PO SCH ×2 (10:02→21:00)
[2021-01-30] MEDS: ENOXAPARIN 40MG/0.4ML SYR SUBCUT SCH (10:03)
[2021-01-30] MEDS: DOCUSATE SODIUM SUGAR FREE 100MG/10ML UDC NG SCH (10:04)
[2021-01-30] MEDS: INSULIN GLARGINE UD 100 UNITS/ML SYR SUBCUT SCH ×2 (11:38→22:13)
[2021-01-30] MEDS ORDERED: BISACODYL 10MG SUPP PR SCH (12:00)
[2021-01-30] MEDS ORDERED: LACTULOSE 20G/30ML UDC PO SCH (12:00)
[2021-01-30] MEDS: MIDAZOLAM HCL 100 MG in SODIUM CHLORIDE 0.9% 80 ML IV PRN (15:45)
[2021-01-31] VITALS (92 sets, daily range): BP systolic 89–117; BP diastolic 51–76
[2021-01-31] MEDS: IPRATROPIUM/ALBUTEROL 0.5-3(2.5)MG/3ML NEB HHN SCH ×6 (00:22→20:20)
[2021-01-31] MEDS: INSULIN LISPRO 100 UNITS/ML SUBCUT SCH ×3 (05:58→18:04)
[2021-01-31] MEDS: METOCLOPRAMIDE HCL 10MG/2ML VIAL IV SCH ×3 (05:58→18:04)
[2021-01-31] MEDS: BLOOD SUGAR DIAGNOSTIC STRIP TEST SCH ×3 (05:59→17:59)
[2021-01-31 07:34] LABS: HEMATOCRIT. 32.1 % (36.0-48.0); HEMOGLOBIN. 10.4 g/dL (12.0-16.0); MEAN PLATELET VOLUME 9.6 fl (7.4-10.4); PLATELET 159 x1000/uL (130-400); RED BLOOD CELL COUNT 3.49 mill/uL (4.2-5.4); RED CELL DISTRIBUTION WIDTH 14.5 % (11.6-14.6)
[2021-01-31 07:38] LABS: CHLORIDE 106 mEq/L (98-107)
[2021-01-31] MEDS: ENOXAPARIN 40MG/0.4ML SYR SUBCUT SCH (09:39)
[2021-01-31] MEDS: PANTOPRAZOLE SODIUM 40 MG/VIAL IV SCH (09:39)
[2021-01-31] MEDS: DOCUSATE SODIUM SUGAR FREE 100MG/10ML UDC NG SCH (09:40)
[2021-01-31] MEDS: DEXAMETHASONE 10 MG/ML VIAL IV SCH (09:40)
[2021-01-31] MEDS: ERGOCALCIFEROL 50000UNITS CAPSULE PO SCH (09:40)
[2021-01-31] MEDS: MIDODRINE HCL 5MG TABLET PO SCH ×3 (09:41→16:12)
[2021-01-31] MEDS: ASCORBIC ACID 500 MG TABLET PO SCH ×2 (09:42→21:29)
[2021-01-31] MEDS: INSULIN GLARGINE UD 100 UNITS/ML SYR SUBCUT SCH (09:43)
[2021-01-31] MEDS: MIDAZOLAM HCL 100 MG in SODIUM CHLORIDE 0.9% 80 ML IV PRN (09:53)
[2021-01-31 09:57] LABS: BG CARBOXYHEMOGLOBIN 0.4 % (0.5-1.5); BG DEOXYHEMOGLOBIN 5.7 % (0.0-5.0); BG FRACTION INSPIRED OXYGEN 80; BG HCO3 ACT 27.1 mmol/L (22.0-26.0); BG METHEMOGLOBIN 0.3 % (0.0-1.5); BG OXYGEN SATURATION 94.3 % (92.0-98.5); BG OXYHEMOGLOBIN 93.6 % (94.0-97.0); BG PCO2 50.1 mmHg (35.0-45.0); BG PH 7.351 (7.350-7.450); BG PO2 77.4 mmHg (75.0-100.0); BG SAMPLE SITE RIGHT RADIAL; BG TOTAL HEMOGLOBIN 10.8 g/dL (12.0-18.0); BG VENT MODE VENT - AC
[2021-01-31 12:16] LABS: PLATELET ESTIMATE NORMAL
[2021-01-31] MEDS: FENTANYL CITRATE/PF 2,500 MCG in SODIUM CHLORIDE 0.9% 200 ML IV PRN (16:16)
[2021-02-01] VITALS (72 sets, daily range): BP systolic 88–152; BP diastolic 55–89
[2021-02-01] MEDS: BLOOD SUGAR DIAGNOSTIC STRIP TEST SCH ×5 (00:16→23:50)
[2021-02-01] MEDS: IPRATROPIUM/ALBUTEROL 0.5-3(2.5)MG/3ML NEB HHN SCH ×7 (00:35→23:48)
[2021-02-01] MEDS: INSULIN LISPRO 100 UNITS/ML SUBCUT SCH ×4 (00:35→17:37)
[2021-02-01] MEDS: METOCLOPRAMIDE HCL 10MG/2ML VIAL IV SCH ×4 (00:36→17:04)
[2021-02-01] MEDS: INSULIN GLARGINE UD 100 UNITS/ML SYR SUBCUT SCH ×3 (00:36→22:38)
[2021-02-01 05:10] LABS: CHLORIDE 107 mEq/L (98-107)
[2021-02-01 05:11] LABS: HEMATOCRIT. 34.1 % (36.0-48.0); HEMOGLOBIN. 10.6 g/dL (12.0-16.0); MEAN CORPUSCULAR HEMOGLOBIN 29.9 pg (28.0-32.0); MEAN CORPUSCULAR VOLUME 95.7 fL (81.0-99.0); MEAN PLATELET VOLUME 9.6 fl (7.4-10.4); PLATELET 161 x1000/uL (130-400); RED BLOOD CELL COUNT 3.57 mill/uL (4.2-5.4); RED CELL DISTRIBUTION WIDTH 15.2 % (11.6-14.6)
[2021-02-01] MEDS: MIDAZOLAM HCL 100 MG in SODIUM CHLORIDE 0.9% 80 ML IV PRN (07:09)
[2021-02-01 08:36] LABS: BG BASE EXCESS 2.3 mmol/L (-2.0-2.0); BG CARBOXYHEMOGLOBIN 0.4 % (0.5-1.5); BG DEOXYHEMOGLOBIN 14.1 % (0.0-5.0); BG METHEMOGLOBIN 0.1 % (0.0-1.5); BG OXYGEN SATURATION 85.8 % (92.0-98.5); BG OXYHEMOGLOBIN 85.4 % (94.0-97.0); BG PCO2 62.5 mmHg (35.0-45.0); BG PH 7.299 (7.350-7.450); BG PO2 54.2 mmHg (75.0-100.0); BG SAMPLE SITE RIGHT BRACHIAL; BG TOTAL HEMOGLOBIN 11.6 g/dL (12.0-18.0); BG VENT MODE VENT - AC
[2021-02-01] MEDS: FENTANYL CITRATE/PF 2,500 MCG in SODIUM CHLORIDE 0.9% 200 ML IV PRN (08:44)
[2021-02-01] MEDS: DEXAMETHASONE 10 MG/ML VIAL IV SCH (09:23)
[2021-02-01] MEDS: ENOXAPARIN 40MG/0.4ML SYR SUBCUT SCH (09:24)
[2021-02-01] MEDS: MIDODRINE HCL 5MG TABLET PO SCH ×3 (09:24→17:04)
[2021-02-01] MEDS: PANTOPRAZOLE SODIUM 40 MG/VIAL IV SCH (09:24)
[2021-02-01] MEDS: DOCUSATE SODIUM SUGAR FREE 100MG/10ML UDC NG SCH (09:24)
[2021-02-01] MEDS: ASCORBIC ACID 500 MG TABLET PO SCH ×2 (10:36→20:56)
[2021-02-01 16:48] LABS: NUCLEATED RED BLOOD CELLS 4 /100 WBC; PLATELET ESTIMATE NORMAL
[2021-02-02] VITALS (92 sets, daily range): BP systolic 97–179; BP diastolic 56–130
[2021-02-02] MEDS: IPRATROPIUM/ALBUTEROL 0.5-3(2.5)MG/3ML NEB HHN SCH ×5 (04:05→20:09)
[2021-02-02 05:06] LABS: HEMATOCRIT. 39.4 % (36.0-48.0); HEMOGLOBIN. 12.4 g/dL (12.0-16.0); MEAN CORPUSCULAR HEMOGLOBIN 29.9 pg (28.0-32.0); MEAN CORPUSCULAR VOLUME 95.3 fL (81.0-99.0); MEAN PLATELET VOLUME 9.8 fl (7.4-10.4); PLATELET 217 x1000/uL (130-400); RED BLOOD CELL COUNT 4.14 mill/uL (4.2-5.4); RED CELL DISTRIBUTION WIDTH 15.6 % (11.6-14.6)
[2021-02-02 05:09] LABS: CHLORIDE 104 mEq/L (98-107)
[2021-02-02] MEDS: BLOOD SUGAR DIAGNOSTIC STRIP TEST SCH ×3 (06:00→17:56)
[2021-02-02] MEDS: INSULIN LISPRO 100 UNITS/ML SUBCUT SCH ×4 (06:00→18:10)
[2021-02-02] MEDS: METOCLOPRAMIDE HCL 10MG/2ML VIAL IV SCH ×4 (06:11→18:04)
[2021-02-02 07:20] LABS: NUCLEATED RED BLOOD CELLS 1 /100 WBC
[2021-02-02 07:21] LABS: PLATELET ESTIMATE NORMAL
[2021-02-02 08:01] LABS: BG BASE EXCESS 3.2 mmol/L (-2.0-2.0); BG CARBOXYHEMOGLOBIN 0.1 % (0.5-1.5); BG DEOXYHEMOGLOBIN 1.9 % (0.0-5.0); BG FRACTION INSPIRED OXYGEN 90; BG HCO3 ACT 28.6 mmol/L (22.0-26.0); BG METHEMOGLOBIN 0.5 % (0.0-1.5); BG OXYGEN SATURATION 98.1 % (92.0-98.5); BG OXYHEMOGLOBIN 97.5 % (94.0-97.0); BG PH 7.402 (7.350-7.450); BG PO2 105.5 mmHg (75.0-100.0); BG SAMPLE SITE RIGHT RADIAL; BG TOTAL HEMOGLOBIN 12.5 g/dL (12.0-18.0); BG TOTAL RESPIRATORY RATE 32 b/min; BG VENT MODE VENT - AC
[2021-02-02] MEDS: MIDODRINE HCL 5MG TABLET PO SCH ×3 (09:00→18:00)
[2021-02-02] MEDS ORDERED: VECURONIUM BROMIDE 10 MG/VIAL IV NR (09:45)
[2021-02-02] MEDS: DEXAMETHASONE 10 MG/ML VIAL IV SCH (10:34)
[2021-02-02] MEDS: ASCORBIC ACID 500 MG TABLET PO SCH ×2 (10:34→22:00)
[2021-02-02] MEDS: PANTOPRAZOLE SODIUM 40 MG/VIAL IV SCH (10:34)
[2021-02-02] MEDS: ENOXAPARIN 40MG/0.4ML SYR SUBCUT SCH (10:35)
[2021-02-02] MEDS: DOCUSATE SODIUM SUGAR FREE 100MG/10ML UDC NG SCH (10:36)
[2021-02-02] MEDS: INSULIN GLARGINE UD 100 UNITS/ML SYR SUBCUT SCH ×2 (10:40→22:09)
[2021-02-02] MEDS: CEFEPIME 2,000 MG in DEXT 5% WATER 100 ML IV SCH (13:20)
[2021-02-02] MEDS ORDERED: SODIUM POLYSTYRENE SULFONATE 15 G/60 ML BOT PO NR (13:30)
[2021-02-02] MEDS: MIDAZOLAM HCL 100 MG in SODIUM CHLORIDE 0.9% 80 ML IV PRN (17:06)
[2021-02-02] MEDS: FENTANYL CITRATE/PF 2,500 MCG in SODIUM CHLORIDE 0.9% 200 ML IV PRN (19:00)
[2021-02-02] MEDS: ACETAMINOPHEN 325MG TABLET PO PRN (22:01)
[2021-02-03] VITALS (92 sets, daily range): BP systolic 87–131; BP diastolic 39–80
[2021-02-03] MEDS: IPRATROPIUM/ALBUTEROL 0.5-3(2.5)MG/3ML NEB HHN SCH ×6 (00:04→20:33)
[2021-02-03] MEDS: CEFEPIME 2,000 MG in DEXT 5% WATER 100 ML IV SCH ×2 (00:55→15:02)
[2021-02-03] MEDS: BLOOD SUGAR DIAGNOSTIC STRIP TEST SCH ×4 (00:56→18:00)
[2021-02-03] MEDS: INSULIN LISPRO 100 UNITS/ML SUBCUT SCH ×4 (00:57→18:00)
[2021-02-03] MEDS: METOCLOPRAMIDE HCL 10MG/2ML VIAL IV SCH ×4 (00:58→18:48)
[2021-02-03] MEDS: BISACODYL 10MG SUPP PR PRN (01:07)
[2021-02-03 05:08] LABS: CHLORIDE 107 mEq/L (98-107); HEMATOCRIT. 31.4 % (36.0-48.0); MEAN CORPUSCULAR HEMOGLOBIN 29.4 pg (28.0-32.0); MEAN CORPUSCULAR VOLUME 91.8 fL (81.0-99.0); MEAN PLATELET VOLUME 9.2 fl (7.4-10.4); PLATELET 185 x1000/uL (130-400); RED BLOOD CELL COUNT 3.42 mill/uL (4.2-5.4); RED CELL DISTRIBUTION WIDTH 15.1 % (11.6-14.6)
[2021-02-03] MEDS: FENTANYL CITRATE/PF 2,500 MCG in SODIUM CHLORIDE 0.9% 200 ML IV PRN ×2 (06:02→16:06)
[2021-02-03] MEDS: MIDAZOLAM HCL 100 MG in SODIUM CHLORIDE 0.9% 80 ML IV PRN ×2 (06:04→23:00)
[2021-02-03 06:54] LABS: NUCLEATED RED BLOOD CELLS 1 /100 WBC; PLATELET ESTIMATE NORMAL
[2021-02-03] MEDS: DEXAMETHASONE 10 MG/ML VIAL IV SCH (08:27)
[2021-02-03] MEDS: DOCUSATE SODIUM SUGAR FREE 100MG/10ML UDC NG SCH (08:27)
[2021-02-03] MEDS: PANTOPRAZOLE SODIUM 40 MG/VIAL IV SCH (08:27)
[2021-02-03] MEDS: ENOXAPARIN 40MG/0.4ML SYR SUBCUT SCH (08:27)
[2021-02-03] MEDS: MIDODRINE HCL 5MG TABLET PO SCH ×3 (08:28→18:48)
[2021-02-03] MEDS: ASCORBIC ACID 500 MG TABLET PO SCH ×2 (08:28→21:00)
[2021-02-03 10:09] LABS: BG BASE EXCESS 4.5 mmol/L (-2.0-2.0); BG CARBOXYHEMOGLOBIN 0.6 % (0.5-1.5); BG DEOXYHEMOGLOBIN 1.4 % (0.0-5.0); BG FRACTION INSPIRED OXYGEN 100; BG HCO3 ACT 31.2 mmol/L (22.0-26.0); BG METHEMOGLOBIN 0.4 % (0.0-1.5); BG OXYGEN SATURATION 98.6 % (92.0-98.5); BG OXYHEMOGLOBIN 97.6 % (94.0-97.0); BG PH 7.356 (7.350-7.450); BG PO2 133.3 mmHg (75.0-100.0); BG SAMPLE SITE LEFT RADIAL; BG TOTAL HEMOGLOBIN 11.4 g/dL (12.0-18.0); BG VENT MODE VENT - AC
[2021-02-03] MEDS ORDERED: NA PHOS,M-B/NA PHOS,DI-BA ENEMA 118ML PR SCH (10:30)
[2021-02-03] MEDS: INSULIN GLARGINE UD 100 UNITS/ML SYR SUBCUT SCH ×2 (11:42→23:00)
[2021-02-03] MEDS: PHENYLEPHRINE 100 MG in DEXT 5% WATER 240 ML IV PRN (12:30)
[2021-02-03] MEDS: MICAFUNGIN 150 MG in SODIUM CHLORIDE 0.9% 100 ML IV SCH (16:31)
[2021-02-04] VITALS (92 sets, daily range): BP systolic 90–138; BP diastolic 50–85
[2021-02-04] MEDS: CEFEPIME 2,000 MG in DEXT 5% WATER 100 ML IV SCH ×2 (00:10→13:45)
[2021-02-04] MEDS: IPRATROPIUM/ALBUTEROL 0.5-3(2.5)MG/3ML NEB HHN SCH ×6 (00:11→20:47)
[2021-02-04] MEDS: BLOOD SUGAR DIAGNOSTIC STRIP TEST SCH ×4 (00:11→17:45)
[2021-02-04] MEDS: METOCLOPRAMIDE HCL 10MG/2ML VIAL IV SCH ×4 (00:20→17:54)
[2021-02-04 05:42] LABS: CHLORIDE 111 mEq/L (98-107)
[2021-02-04] MEDS: INSULIN LISPRO 100 UNITS/ML SUBCUT SCH ×4 (06:00→17:55)
[2021-02-04] MEDS: FENTANYL CITRATE/PF 2,500 MCG in SODIUM CHLORIDE 0.9% 200 ML IV PRN ×2 (06:53→22:00)
[2021-02-04] MEDS: MIDAZOLAM HCL 100 MG in SODIUM CHLORIDE 0.9% 80 ML IV PRN ×2 (07:00→22:01)
[2021-02-04] MEDS: DOCUSATE SODIUM SUGAR FREE 100MG/10ML UDC NG SCH (08:03)
[2021-02-04] MEDS: PANTOPRAZOLE SODIUM 40 MG/VIAL IV SCH (08:03)
[2021-02-04] MEDS: DEXAMETHASONE 10 MG/ML VIAL IV SCH (08:03)
[2021-02-04] MEDS: MIDODRINE HCL 5MG TABLET PO SCH ×3 (08:04→17:54)
[2021-02-04] MEDS: ENOXAPARIN 40MG/0.4ML SYR SUBCUT SCH (08:04)
[2021-02-04] MEDS: ACETAMINOPHEN 325MG TABLET PO PRN ×2 (08:04→21:34)
[2021-02-04] MEDS: ASCORBIC ACID 500 MG TABLET PO SCH ×2 (08:07→21:33)
[2021-02-04 08:22] LABS: BG BASE EXCESS 6.5 mmol/L (-2.0-2.0); BG CARBOXYHEMOGLOBIN 0.5 % (0.5-1.5); BG DEOXYHEMOGLOBIN 1.5 % (0.0-5.0); BG HCO3 ACT 33.8 mmol/L (22.0-26.0); BG METHEMOGLOBIN 0.3 % (0.0-1.5); BG OXYGEN SATURATION 98.5 % (92.0-98.5); BG OXYHEMOGLOBIN 97.7 % (94.0-97.0); BG PCO2 63.5 mmHg (35.0-45.0); BG PH 7.344 (7.350-7.450); BG PO2 127.6 mmHg (75.0-100.0); BG SAMPLE SITE RIGHT RADIAL; BG TOTAL HEMOGLOBIN 11.3 g/dL (12.0-18.0); BG VENT MODE VENT - AC
[2021-02-04] MEDS: INSULIN GLARGINE UD 100 UNITS/ML SYR SUBCUT SCH ×2 (12:03→21:42)
[2021-02-04 12:24] LABS: HEMATOCRIT. 33.9 % (36.0-48.0); HEMOGLOBIN. 10.5 g/dL (12.0-16.0); MEAN CORPUSCULAR HEMOGLOBIN 29.7 pg (28.0-32.0); MEAN CORPUSCULAR VOLUME 95.7 fL (81.0-99.0); MEAN PLATELET VOLUME 9.7 fl (7.4-10.4); PLATELET 159 x1000/uL (130-400); RED BLOOD CELL COUNT 3.55 mill/uL (4.2-5.4); RED CELL DISTRIBUTION WIDTH 15.7 % (11.6-14.6)
[2021-02-04 13:08] LABS: PLATELET ESTIMATE NORMAL
[2021-02-04] MEDS: MICAFUNGIN 150 MG in SODIUM CHLORIDE 0.9% 100 ML IV SCH (13:49)
[2021-02-04] MEDS: MEROPENEM 1,000 MG in SODIUM CHLORIDE 0.9% 100 ML IV SCH (19:54)
[2021-02-05] VITALS (96 sets, daily range): BP systolic 92–146; BP diastolic 57–90
[2021-02-05] MEDS: INSULIN LISPRO 100 UNITS/ML SUBCUT SCH ×4 (01:00→17:34)
[2021-02-05] MEDS: IPRATROPIUM/ALBUTEROL 0.5-3(2.5)MG/3ML NEB HHN SCH ×6 (01:13→20:52)
[2021-02-05] MEDS: METOCLOPRAMIDE HCL 10MG/2ML VIAL IV SCH ×4 (01:23→17:33)
[2021-02-05 05:12] LABS: HEMOGLOBIN. 9.4 g/dL (12.0-16.0); MEAN CORPUSCULAR HEMOGLOBIN 29.7 pg (28.0-32.0); MEAN CORPUSCULAR VOLUME 91.7 fL (81.0-99.0); MEAN PLATELET VOLUME 9.3 fl (7.4-10.4); PLATELET 164 x1000/uL (130-400); RED BLOOD CELL COUNT 3.17 mill/uL (4.2-5.4); RED CELL DISTRIBUTION WIDTH 15.1 % (11.6-14.6)
[2021-02-05 05:23] LABS: CHLORIDE 110 mEq/L (98-107); PROTHROMBIN TIME 11.2 sec (9.6-11.0)
[2021-02-05] MEDS: MEROPENEM 1,000 MG in SODIUM CHLORIDE 0.9% 100 ML IV SCH ×2 (06:04→17:33)
[2021-02-05] MEDS: BLOOD SUGAR DIAGNOSTIC STRIP TEST SCH ×4 (06:09→17:33)
[2021-02-05] MEDS: ENOXAPARIN 40MG/0.4ML SYR SUBCUT SCH (08:08)
[2021-02-05] MEDS: ASCORBIC ACID 500 MG TABLET PO SCH ×2 (08:09→21:02)
[2021-02-05] MEDS: DEXAMETHASONE 10 MG/ML VIAL IV SCH (08:09)
[2021-02-05] MEDS: DOCUSATE SODIUM SUGAR FREE 100MG/10ML UDC NG SCH (08:09)
[2021-02-05] MEDS: PANTOPRAZOLE SODIUM 40 MG/VIAL IV SCH (08:09)
[2021-02-05] MEDS: MIDODRINE HCL 5MG TABLET PO SCH ×3 (08:10→17:07)
[2021-02-05 10:11] LABS: BG BASE EXCESS 5.7 mmol/L (-2.0-2.0); BG CARBOXYHEMOGLOBIN 0.3 % (0.5-1.5); BG DEOXYHEMOGLOBIN 1.8 % (0.0-5.0); BG FRACTION INSPIRED OXYGEN 500; BG HCO3 ACT 32.7 mmol/L (22.0-26.0); BG METHEMOGLOBIN 0.3 % (0.0-1.5); BG OXYGEN SATURATION 98.2 % (92.0-98.5); BG OXYHEMOGLOBIN 97.6 % (94.0-97.0); BG PCO2 62.2 mmHg (35.0-45.0); BG PH 7.339 (7.350-7.450); BG PO2 124.4 mmHg (75.0-100.0); BG SAMPLE SITE RIGHT RADIAL; BG VENT MODE VENT - AC
[2021-02-05] MEDS: INSULIN GLARGINE UD 100 UNITS/ML SYR SUBCUT SCH ×2 (10:37→22:25)
[2021-02-05] MEDS ORDERED: LACTULOSE 20G/30ML UDC PO SCH (13:30)
[2021-02-05 14:18] LABS: PLATELET ESTIMATE NORMAL
[2021-02-05] MEDS: MICAFUNGIN 150 MG in SODIUM CHLORIDE 0.9% 100 ML IV SCH (15:18)
[2021-02-05] MEDS: FENTANYL CITRATE/PF 2,500 MCG in SODIUM CHLORIDE 0.9% 200 ML IV PRN (16:54)
[2021-02-05] MEDS: MIDAZOLAM HCL 100 MG in SODIUM CHLORIDE 0.9% 80 ML IV PRN (17:41)
[2021-02-06] VITALS (100 sets, daily range): BP systolic 90–159; BP diastolic 57–100
[2021-02-06] MEDS: IPRATROPIUM/ALBUTEROL 0.5-3(2.5)MG/3ML NEB HHN SCH ×3 (00:18→12:09)
[2021-02-06] MEDS: METOCLOPRAMIDE HCL 10MG/2ML VIAL IV SCH ×5 (00:45→23:52)
[2021-02-06 05:00] LABS: HEMATOCRIT. 32.9 % (36.0-48.0); HEMOGLOBIN. 10.4 g/dL (12.0-16.0); MEAN CORPUSCULAR HEMOGLOBIN 29.3 pg (28.0-32.0); MEAN CORPUSCULAR VOLUME 92.7 fL (81.0-99.0); MEAN PLATELET VOLUME 9.6 fl (7.4-10.4); PLATELET 233 x1000/uL (130-400); RED BLOOD CELL COUNT 3.55 mill/uL (4.2-5.4); RED CELL DISTRIBUTION WIDTH 15.1 % (11.6-14.6)
[2021-02-06 05:11] LABS: CHLORIDE 109 mEq/L (98-107)
[2021-02-06] MEDS: BLOOD SUGAR DIAGNOSTIC STRIP TEST SCH ×5 (06:00→23:53)
[2021-02-06] MEDS: INSULIN LISPRO 100 UNITS/ML SUBCUT SCH ×4 (06:24→17:33)
[2021-02-06] MEDS: FENTANYL CITRATE/PF 2,500 MCG in SODIUM CHLORIDE 0.9% 200 ML IV PRN ×3 (06:26→21:05)
[2021-02-06 06:27] LABS: BG BASE EXCESS 6.7 mmol/L (-2.0-2.0); BG CARBOXYHEMOGLOBIN 1.1 % (0.5-1.5); BG DEOXYHEMOGLOBIN 8.7 % (0.0-5.0); BG FRACTION INSPIRED OXYGEN 100; BG HCO3 ACT 32.8 mmol/L (22.0-26.0); BG METHEMOGLOBIN 0.2 % (0.0-1.5); BG OXYGEN SATURATION 91.2 % (92.0-98.5); BG PCO2 53.5 mmHg (35.0-45.0); BG PH 7.406 (7.350-7.450); BG PO2 61.3 mmHg (75.0-100.0); BG SAMPLE SITE RIGHT RADIAL; BG TOTAL HEMOGLOBIN 13.2 g/dL (12.0-18.0); BG VENT MODE VENT - AC
[2021-02-06] MEDS: MEROPENEM 1,000 MG in SODIUM CHLORIDE 0.9% 100 ML IV SCH ×2 (06:39→17:32)
[2021-02-06] MEDS: ACETAMINOPHEN 325MG TABLET PO PRN ×2 (07:28→14:48)
[2021-02-06] MEDS: DEXAMETHASONE 10 MG/ML VIAL IV SCH (09:11)
[2021-02-06] MEDS: ASCORBIC ACID 500 MG TABLET PO SCH ×2 (09:11→20:34)
[2021-02-06] MEDS: PANTOPRAZOLE SODIUM 40 MG/VIAL IV SCH (09:11)
[2021-02-06] MEDS: DOCUSATE SODIUM SUGAR FREE 100MG/10ML UDC NG SCH (09:11)
[2021-02-06] MEDS: ENOXAPARIN 40MG/0.4ML SYR SUBCUT SCH (09:12)
[2021-02-06] MEDS: MIDODRINE HCL 5MG TABLET PO SCH ×3 (09:12→17:13)
[2021-02-06] MEDS: MIDAZOLAM HCL 100 MG in SODIUM CHLORIDE 0.9% 80 ML IV PRN ×3 (09:45→16:48)
[2021-02-06] MEDS: INSULIN GLARGINE UD 100 UNITS/ML SYR SUBCUT SCH ×2 (10:51→21:43)
[2021-02-06] MEDS ORDERED: PROPOFOL 10MG/ML 100ML 100 ML IV PRN (13:00)
[2021-02-06] MEDS: MICAFUNGIN 150 MG in SODIUM CHLORIDE 0.9% 100 ML IV SCH (13:55)
[2021-02-06] MEDS: ERGOCALCIFEROL 50000UNITS CAPSULE PO SCH (16:30)
[2021-02-06] MEDS ORDERED: VANCOMYCIN 1 G PREMIX 200 ML IV NR (18:00)
[2021-02-06] MEDS: IPRATROPIUM BROMIDE (0.02%) 0.5MG/2.5ML NEB HHN SCH (20:28)
[2021-02-06 23:36] LABS: PLATELET ESTIMATE NORMAL
[2021-02-07] VITALS (95 sets, daily range): BP systolic 81–162; BP diastolic 48–106
[2021-02-07] MEDS: IPRATROPIUM BROMIDE (0.02%) 0.5MG/2.5ML NEB HHN SCH ×5 (00:29→20:01)
[2021-02-07] MEDS: MIDAZOLAM HCL 100 MG in SODIUM CHLORIDE 0.9% 80 ML IV PRN ×3 (01:43→19:51)
[2021-02-07 05:11] LABS: HEMATOCRIT. 29.1 % (36.0-48.0); HEMOGLOBIN. 9.2 g/dL (12.0-16.0); MEAN CORPUSCULAR HEMOGLOBIN 29.7 pg (28.0-32.0); MEAN CORPUSCULAR VOLUME 94.2 fL (81.0-99.0); MEAN PLATELET VOLUME 9.6 fl (7.4-10.4); PLATELET 199 x1000/uL (130-400); RED BLOOD CELL COUNT 3.09 mill/uL (4.2-5.4); RED CELL DISTRIBUTION WIDTH 15.2 % (11.6-14.6)
[2021-02-07 05:16] LABS: CHLORIDE 112 mEq/L (98-107)
[2021-02-07] MEDS: METOCLOPRAMIDE HCL 10MG/2ML VIAL IV SCH ×3 (05:52→17:01)
[2021-02-07] MEDS ORDERED: VANCOMYCIN 500 MG PREMIX 100 ML IV SCH (06:00)
[2021-02-07] MEDS: INSULIN LISPRO 100 UNITS/ML SUBCUT SCH ×5 (06:00→23:48)
[2021-02-07] MEDS: BLOOD SUGAR DIAGNOSTIC STRIP TEST SCH ×4 (06:00→23:48)
[2021-02-07] MEDS: FENTANYL CITRATE/PF 2,500 MCG in SODIUM CHLORIDE 0.9% 200 ML IV PRN ×3 (06:03→21:41)
[2021-02-07] MEDS: MEROPENEM 1,000 MG in SODIUM CHLORIDE 0.9% 100 ML IV SCH ×2 (06:51→17:01)
[2021-02-07 09:03] LABS: BG BASE EXCESS 7.6 mmol/L (-2.0-2.0); BG CARBOXYHEMOGLOBIN 0.4 % (0.5-1.5); BG DEOXYHEMOGLOBIN 3.4 % (0.0-5.0); BG FRACTION INSPIRED OXYGEN 100; BG HCO3 ACT 33.7 mmol/L (22.0-26.0); BG METHEMOGLOBIN 0.3 % (0.0-1.5); BG OXYGEN SATURATION 96.6 % (92.0-98.5); BG OXYHEMOGLOBIN 95.9 % (94.0-97.0); BG PCO2 55.2 mmHg (35.0-45.0); BG PH 7.403 (7.350-7.450); BG SAMPLE SITE LEFT RADIAL; BG TOTAL HEMOGLOBIN 10.5 g/dL (12.0-18.0); BG VENT MODE VENT - AC
[2021-02-07] MEDS: MIDODRINE HCL 5MG TABLET PO SCH ×3 (09:22→17:02)
[2021-02-07] MEDS: DEXAMETHASONE 10 MG/ML VIAL IV SCH (09:22)
[2021-02-07] MEDS: ASCORBIC ACID 500 MG TABLET PO SCH ×2 (09:22→21:27)
[2021-02-07] MEDS: DOCUSATE SODIUM SUGAR FREE 100MG/10ML UDC NG SCH (09:22)
[2021-02-07] MEDS: ENOXAPARIN 30MG/0.3ML SYR SUBCUT SCH ×2 (09:28→21:27)
[2021-02-07] MEDS: PANTOPRAZOLE SODIUM 40 MG/VIAL IV SCH (09:28)
[2021-02-07 10:52] LABS: NUCLEATED RED BLOOD CELLS 2 /100 WBC; PLATELET ESTIMATE NORMAL
[2021-02-07] MEDS: INSULIN GLARGINE UD 100 UNITS/ML SYR SUBCUT SCH ×2 (11:44→22:31)
[2021-02-07] MEDS ORDERED: VECURONIUM BROMIDE 10 MG/VIAL IV SCH (12:00)
[2021-02-07] MEDS: MICAFUNGIN 150 MG in SODIUM CHLORIDE 0.9% 100 ML IV SCH (17:01)
[2021-02-07] MEDS ORDERED: VANCOMYCIN 750 MG PREMIX 150 ML IV SCH (18:00)
[2021-02-07] MEDS: PHENYLEPHRINE 100 MG in DEXT 5% WATER 240 ML IV PRN (21:34)
[2021-02-08] VITALS (99 sets, daily range): BP systolic 61–175; BP diastolic 44–115
[2021-02-08] MEDS: METOCLOPRAMIDE HCL 10MG/2ML VIAL IV SCH ×5 (00:30→23:48)
[2021-02-08] MEDS: IPRATROPIUM BROMIDE (0.02%) 0.5MG/2.5ML NEB HHN SCH ×6 (00:41→21:34)
[2021-02-08] MEDS: MIDAZOLAM HCL 100 MG in SODIUM CHLORIDE 0.9% 80 ML IV PRN ×3 (02:11→16:05)
[2021-02-08] MEDS: FENTANYL CITRATE/PF 2,500 MCG in SODIUM CHLORIDE 0.9% 200 ML IV PRN ×3 (05:04→19:58)
[2021-02-08] MEDS: MEROPENEM 1,000 MG in SODIUM CHLORIDE 0.9% 100 ML IV SCH ×2 (05:24→17:44)
[2021-02-08 05:44] LABS: CHLORIDE 112 mEq/L (98-107); HEMATOCRIT. 31.8 % (36.0-48.0); HEMOGLOBIN. 9.9 g/dL (12.0-16.0); MEAN CORPUSCULAR HEMOGLOBIN 29.1 pg (28.0-32.0); MEAN CORPUSCULAR VOLUME 93.3 fL (81.0-99.0); MEAN PLATELET VOLUME 9.5 fl (7.4-10.4); PLATELET 235 x1000/uL (130-400); RED BLOOD CELL COUNT 3.41 mill/uL (4.2-5.4); RED CELL DISTRIBUTION WIDTH 15.3 % (11.6-14.6)
[2021-02-08] MEDS: INSULIN LISPRO 100 UNITS/ML SUBCUT SCH ×4 (05:46→23:14)
[2021-02-08] MEDS: BLOOD SUGAR DIAGNOSTIC STRIP TEST SCH ×4 (05:46→23:13)
[2021-02-08 09:08] LABS: BG BASE EXCESS 8.4 mmol/L (-2.0-2.0); BG CARBOXYHEMOGLOBIN 0.3 % (0.5-1.5); BG DEOXYHEMOGLOBIN 1.7 % (0.0-5.0); BG FRACTION INSPIRED OXYGEN 100; BG HCO3 ACT 35.6 mmol/L (22.0-26.0); BG METHEMOGLOBIN 0.4 % (0.0-1.5); BG OXYGEN SATURATION 98.3 % (92.0-98.5); BG OXYHEMOGLOBIN 97.6 % (94.0-97.0); BG PCO2 64.7 mmHg (35.0-45.0); BG PH 7.359 (7.350-7.450); BG PO2 133.2 mmHg (75.0-100.0); BG SAMPLE SITE LEFT RADIAL; BG TOTAL HEMOGLOBIN 10.6 g/dL (12.0-18.0); BG TOTAL RESPIRATORY RATE 30 b/min; BG VENT MODE VENT - AC
[2021-02-08] MEDS: DEXAMETHASONE 10 MG/ML VIAL IV SCH (09:19)
[2021-02-08] MEDS: PANTOPRAZOLE SODIUM 40 MG/VIAL IV SCH (09:19)
[2021-02-08] MEDS: BISACODYL 10MG SUPP PR PRN (09:19)
[2021-02-08] MEDS: DOCUSATE SODIUM SUGAR FREE 100MG/10ML UDC NG SCH (09:19)
[2021-02-08] MEDS: ASCORBIC ACID 500 MG TABLET PO SCH ×2 (09:20→20:11)
[2021-02-08 10:41] LABS: PROTHROMBIN TIME 11.1 sec (9.6-11.0)
[2021-02-08] MEDS: VANCOMYCIN 1 G PREMIX 200 ML IV SCH ×2 (11:52→21:31)
[2021-02-08] MEDS: INSULIN GLARGINE UD 100 UNITS/ML SYR SUBCUT SCH (11:53)
[2021-02-08] MEDS ORDERED: VECURONIUM BROMIDE 10 MG/VIAL IV NR (12:00)
[2021-02-08] MEDS: MIDODRINE HCL 5MG TABLET PO SCH ×2 (12:11→17:43)
[2021-02-08 12:44] LABS: PLATELET ESTIMATE NORMAL
[2021-02-08] MEDS: PROPOFOL 10MG/ML 100ML 100 ML IV PRN ×4 (13:43→23:57)
[2021-02-08] MEDS: MICAFUNGIN 150 MG in SODIUM CHLORIDE 0.9% 100 ML IV SCH (16:19)
[2021-02-09] VITALS (96 sets, daily range): BP systolic 71–213; BP diastolic 32–126
[2021-02-09] MEDS: MIDAZOLAM HCL 100 MG in SODIUM CHLORIDE 0.9% 80 ML IV PRN ×3 (00:23→20:50)
[2021-02-09] MEDS: PHENYLEPHRINE 100 MG in DEXT 5% WATER 240 ML IV PRN (02:37)
[2021-02-09] MEDS: IPRATROPIUM BROMIDE (0.02%) 0.5MG/2.5ML NEB HHN SCH ×7 (02:40→23:51)
[2021-02-09] MEDS: PROPOFOL 10MG/ML 100ML 100 ML IV PRN ×7 (02:59→23:39)
[2021-02-09] MEDS: FENTANYL CITRATE/PF 2,500 MCG in SODIUM CHLORIDE 0.9% 200 ML IV PRN ×3 (03:55→19:40)
[2021-02-09] MEDS: BLOOD SUGAR DIAGNOSTIC STRIP TEST SCH ×3 (05:03→17:55)
[2021-02-09] MEDS: INSULIN LISPRO 100 UNITS/ML SUBCUT SCH ×3 (05:03→18:01)
[2021-02-09] MEDS: MEROPENEM 1,000 MG in SODIUM CHLORIDE 0.9% 100 ML IV SCH ×2 (05:04→17:55)
[2021-02-09] MEDS: METOCLOPRAMIDE HCL 10MG/2ML VIAL IV SCH ×4 (05:04→23:39)
[2021-02-09 05:50] LABS: HEMATOCRIT. 30.6 % (36.0-48.0); HEMOGLOBIN. 9.8 g/dL (12.0-16.0); MEAN CORPUSCULAR HEMOGLOBIN 29.6 pg (28.0-32.0); MEAN CORPUSCULAR VOLUME 92.2 fL (81.0-99.0); MEAN PLATELET VOLUME 9.8 fl (7.4-10.4); PLATELET 254 x1000/uL (130-400); RED BLOOD CELL COUNT 3.32 mill/uL (4.2-5.4); RED CELL DISTRIBUTION WIDTH 15.1 % (11.6-14.6)
[2021-02-09 05:52] LABS: CHLORIDE 109 mEq/L (98-107)
[2021-02-09 09:00] LABS: BG BASE EXCESS 5.9 mmol/L (-2.0-2.0); BG CARBOXYHEMOGLOBIN 0.4 % (0.5-1.5); BG DEOXYHEMOGLOBIN 10.3 % (0.0-5.0); BG HCO3 ACT 31.5 mmol/L (22.0-26.0); BG METHEMOGLOBIN 0.3 % (0.0-1.5); BG OXYGEN SATURATION 89.6 % (92.0-98.5); BG PCO2 50.9 mmHg (35.0-45.0); BG PH 7.409 (7.350-7.450); BG PO2 57.9 mmHg (75.0-100.0); BG TOTAL HEMOGLOBIN 10.5 g/dL (12.0-18.0)
[2021-02-09] MEDS: DEXAMETHASONE 10 MG/ML VIAL IV SCH (09:23)
[2021-02-09] MEDS: PANTOPRAZOLE SODIUM 40 MG/VIAL IV SCH (09:23)
[2021-02-09] MEDS: DOCUSATE SODIUM SUGAR FREE 100MG/10ML UDC NG SCH (09:24)
[2021-02-09] MEDS: MIDODRINE HCL 5MG TABLET PO SCH ×3 (09:24→17:56)
[2021-02-09] MEDS: ASCORBIC ACID 500 MG TABLET PO SCH ×2 (09:24→20:03)
[2021-02-09] MEDS: VANCOMYCIN 1 G PREMIX 200 ML IV SCH ×2 (09:25→21:02)
[2021-02-09 09:50] LABS: BG FRACTION INSPIRED OXYGEN 90; BG TOTAL RESPIRATORY RATE 34 b/min; BG VENT MODE VENT - AC
[2021-02-09 09:53] LABS: BG SAMPLE SITE LEFT RADIAL
[2021-02-09] MEDS: NOREPINEPHRINE 8 MG in DEXT 5% WATER 242 ML IV PRN (11:21)
[2021-02-09] MEDS: MICAFUNGIN 150 MG in SODIUM CHLORIDE 0.9% 100 ML IV SCH (16:50)
[2021-02-09 16:52] LABS: PLATELET ESTIMATE NORMAL
[2021-02-10] VITALS (53 sets, daily range): BP systolic 68–163; BP diastolic 43–95
[2021-02-10] MEDS: BLOOD SUGAR DIAGNOSTIC STRIP TEST SCH ×4 (00:28→17:29)
[2021-02-10] MEDS: MEROPENEM 1,000 MG in SODIUM CHLORIDE 0.9% 100 ML IV SCH ×3 (01:05→17:13)
[2021-02-10] MEDS: FENTANYL CITRATE/PF 2,500 MCG in SODIUM CHLORIDE 0.9% 200 ML IV PRN ×3 (02:34→20:47)
[2021-02-10] MEDS: IPRATROPIUM BROMIDE (0.02%) 0.5MG/2.5ML NEB HHN SCH ×6 (03:18→23:54)
[2021-02-10] MEDS: PROPOFOL 10MG/ML 100ML 100 ML IV PRN ×3 (03:51→16:34)
[2021-02-10] MEDS: INSULIN LISPRO 100 UNITS/ML SUBCUT SCH ×4 (05:24→17:29)
[2021-02-10] MEDS: METOCLOPRAMIDE HCL 10MG/2ML VIAL IV SCH ×3 (05:25→17:11)
[2021-02-10 05:29] LABS: CHLORIDE 114 mEq/L (98-107)
[2021-02-10] MEDS: DOCUSATE SODIUM SUGAR FREE 100MG/10ML UDC NG SCH (08:05)
[2021-02-10] MEDS: MIDODRINE HCL 5MG TABLET PO SCH ×3 (08:05→17:11)
[2021-02-10] MEDS: ASCORBIC ACID 500 MG TABLET PO SCH ×2 (08:06→20:26)
[2021-02-10 08:08] LABS: BG BASE EXCESS 6.7 mmol/L (-2.0-2.0); BG CARBOXYHEMOGLOBIN 0.3 % (0.5-1.5); BG DEOXYHEMOGLOBIN 1.1 % (0.0-5.0); BG HCO3 ACT 33.3 mmol/L (22.0-26.0); BG METHEMOGLOBIN 0.3 % (0.0-1.5); BG OXYGEN SATURATION 98.9 % (92.0-98.5); BG OXYHEMOGLOBIN 98.3 % (94.0-97.0); BG PCO2 59.4 mmHg (35.0-45.0); BG PH 7.366 (7.350-7.450); BG PO2 174.9 mmHg (75.0-100.0); BG SAMPLE SITE RIGHT RADIAL; BG TOTAL HEMOGLOBIN 9.4 g/dL (12.0-18.0); BG VENT MODE VENT- PRVC
[2021-02-10] MEDS: DEXAMETHASONE 10 MG/ML VIAL IV SCH (08:32)
[2021-02-10] MEDS: PANTOPRAZOLE SODIUM 40 MG/VIAL IV SCH (08:32)
[2021-02-10 09:14] LABS: HEMATOCRIT. 28.5 % (36.0-48.0); HEMOGLOBIN. 9.1 g/dL (12.0-16.0); MEAN CORPUSCULAR HEMOGLOBIN 29.3 pg (28.0-32.0); MEAN CORPUSCULAR VOLUME 92.1 fL (81.0-99.0); MEAN PLATELET VOLUME 8.6 fl (7.4-10.4); PLATELET 245 x1000/uL (130-400); RED BLOOD CELL COUNT 3.09 mill/uL (4.2-5.4); RED CELL DISTRIBUTION WIDTH 14.6 % (11.6-14.6)
[2021-02-10] MEDS: MIDAZOLAM HCL 100 MG in SODIUM CHLORIDE 0.9% 80 ML IV PRN ×2 (09:23→22:03)
[2021-02-10] MEDS: VANCOMYCIN 1 G PREMIX 200 ML IV SCH ×2 (09:25→22:04)
[2021-02-10 13:43] LABS: PLATELET ESTIMATE NORMAL
[2021-02-10] MEDS ORDERED: PROPOFOL 10MG/ML 100ML 100 ML IV PRN (16:30)
[2021-02-11] VITALS (39 sets, daily range): BP systolic 110–150; BP diastolic 54–91
[2021-02-11] MEDS: MEROPENEM 1,000 MG in SODIUM CHLORIDE 0.9% 100 ML IV SCH ×3 (02:11→17:32)
[2021-02-11] MEDS: IPRATROPIUM BROMIDE (0.02%) 0.5MG/2.5ML NEB HHN SCH ×5 (04:03→20:22)
[2021-02-11 05:44] LABS: MEAN CORPUSCULAR HEMOGLOBIN 29.4 pg (28.0-32.0); MEAN CORPUSCULAR VOLUME 91.4 fL (81.0-99.0); MEAN PLATELET VOLUME 8.8 fl (7.4-10.4); PLATELET 292 x1000/uL (130-400); RED CELL DISTRIBUTION WIDTH 14.7 % (11.6-14.6)
[2021-02-11] MEDS: INSULIN LISPRO 100 UNITS/ML SUBCUT SCH ×4 (06:00→17:39)
[2021-02-11 06:03] LABS: CHLORIDE 111 mEq/L (98-107)
[2021-02-11] MEDS: BLOOD SUGAR DIAGNOSTIC STRIP TEST SCH ×4 (06:06→17:40)
[2021-02-11] MEDS: METOCLOPRAMIDE HCL 10MG/2ML VIAL IV SCH ×4 (06:06→17:43)
[2021-02-11 07:18] LABS: PLATELET ESTIMATE NORMAL
[2021-02-11] MEDS: MIDAZOLAM HCL 100 MG in SODIUM CHLORIDE 0.9% 80 ML IV PRN ×2 (08:37→21:41)
[2021-02-11] MEDS ORDERED: LACTULOSE 20G/30ML UDC PO NR (08:43)
[2021-02-11] MEDS: ASCORBIC ACID 500 MG TABLET PO SCH ×2 (09:07→21:39)
[2021-02-11] MEDS: DOCUSATE SODIUM SUGAR FREE 100MG/10ML UDC NG SCH (09:07)
[2021-02-11] MEDS: DEXAMETHASONE 10 MG/ML VIAL IV SCH (09:07)
[2021-02-11] MEDS: PANTOPRAZOLE SODIUM 40 MG/VIAL IV SCH (09:07)
[2021-02-11] MEDS: MIDODRINE HCL 5MG TABLET PO SCH ×3 (09:08→17:43)
[2021-02-11 09:35] LABS: BG BASE EXCESS 3.5 mmol/L (-2.0-2.0); BG CARBOXYHEMOGLOBIN 0.3 % (0.5-1.5); BG DEOXYHEMOGLOBIN 1.7 % (0.0-5.0); BG FRACTION INSPIRED OXYGEN 90; BG HCO3 ACT 28.6 mmol/L (22.0-26.0); BG METHEMOGLOBIN 0.2 % (0.0-1.5); BG OXYGEN SATURATION 98.3 % (92.0-98.5); BG OXYHEMOGLOBIN 97.8 % (94.0-97.0); BG PCO2 46.1 mmHg (35.0-45.0); BG PH 7.411 (7.350-7.450); BG SAMPLE SITE RIGHT RADIAL; BG TOTAL HEMOGLOBIN 10.7 g/dL (12.0-18.0); BG VENT MODE VENT - PRVC
[2021-02-11] MEDS: VANCOMYCIN 1 G PREMIX 200 ML IV SCH ×2 (10:01→21:40)
[2021-02-11] MEDS: FENTANYL CITRATE/PF 2,500 MCG in SODIUM CHLORIDE 0.9% 200 ML IV PRN (17:55)
[2021-02-12] VITALS (49 sets, daily range): BP systolic 88–176; BP diastolic 49–107
[2021-02-12] MEDS: IPRATROPIUM BROMIDE (0.02%) 0.5MG/2.5ML NEB HHN SCH ×6 (00:22→21:01)
[2021-02-12 05:35] LABS: CHLORIDE 110 mEq/L (98-107)
[2021-02-12] MEDS: METOCLOPRAMIDE HCL 10MG/2ML VIAL IV SCH ×5 (05:38→23:59)
[2021-02-12] MEDS: BLOOD SUGAR DIAGNOSTIC STRIP TEST SCH ×4 (05:39→17:11)
[2021-02-12] MEDS: INSULIN LISPRO 100 UNITS/ML SUBCUT SCH ×4 (05:39→17:11)
[2021-02-12] MEDS: DOCUSATE SODIUM SUGAR FREE 100MG/10ML UDC NG SCH (08:15)
[2021-02-12] MEDS: DEXAMETHASONE 10 MG/ML VIAL IV SCH (08:15)
[2021-02-12] MEDS: PANTOPRAZOLE SODIUM 40 MG/VIAL IV SCH (08:16)
[2021-02-12] MEDS: MIDODRINE HCL 5MG TABLET PO SCH ×3 (08:16→17:21)
[2021-02-12] MEDS: ASCORBIC ACID 500 MG TABLET PO SCH ×2 (08:16→22:34)
[2021-02-12 09:02] LABS: BG CARBOXYHEMOGLOBIN 0.6 % (0.5-1.5); BG DEOXYHEMOGLOBIN 8.4 % (0.0-5.0); BG FRACTION INSPIRED OXYGEN 70; BG HCO3 ACT 30.9 mmol/L (22.0-26.0); BG METHEMOGLOBIN 0.2 % (0.0-1.5); BG OXYGEN SATURATION 91.5 % (92.0-98.5); BG OXYHEMOGLOBIN 90.8 % (94.0-97.0); BG PH 7.445 (7.350-7.450); BG PO2 60.2 mmHg (75.0-100.0); BG SAMPLE SITE RIGHT RADIAL; BG TOTAL HEMOGLOBIN 11.6 g/dL (12.0-18.0); BG TOTAL RESPIRATORY RATE 40 b/min; BG VENT MODE VENT- PRVC
[2021-02-12] MEDS: MIDAZOLAM HCL 100 MG in SODIUM CHLORIDE 0.9% 80 ML IV PRN ×2 (09:05→22:45)
[2021-02-12 09:41] LABS: HEMOGLOBIN. 10.3 g/dL (12.0-16.0); MEAN CORPUSCULAR HEMOGLOBIN 29.9 pg (28.0-32.0); MEAN CORPUSCULAR VOLUME 92.5 fL (81.0-99.0); RED BLOOD CELL COUNT 3.46 mill/uL (4.2-5.4); RED CELL DISTRIBUTION WIDTH 15.2 % (11.6-14.6)
[2021-02-12 10:52] LABS: PLATELET ESTIMATE NORMAL
[2021-02-12 10:53] LABS: MEAN PLATELET VOLUME 9.8 fl (7.4-10.4); PLATELET 359 x1000/uL (130-400)
[2021-02-12] MEDS: FENTANYL CITRATE/PF 2,500 MCG in SODIUM CHLORIDE 0.9% 200 ML IV PRN (11:49)
[2021-02-12] MEDS: ACETAMINOPHEN 325MG TABLET PO PRN (22:35)
[2021-02-13] VITALS (80 sets, daily range): BP systolic 84–211; BP diastolic 46–127
[2021-02-13] MEDS: IPRATROPIUM BROMIDE (0.02%) 0.5MG/2.5ML NEB HHN SCH ×7 (00:27→20:47)
[2021-02-13] MEDS: FENTANYL CITRATE/PF 2,500 MCG in SODIUM CHLORIDE 0.9% 200 ML IV PRN ×3 (02:59→22:25)
[2021-02-13 04:40] LABS: BASOPHILS % 0.6 % (0.0-2.0); EOSINOPHILS % 0.2 % (0.0-5.0); HEMATOCRIT. 30.4 % (36.0-48.0); HEMOGLOBIN. 9.7 g/dL (12.0-16.0); LYMPHOCYTES % 12.3 % (20.0-50.0); MEAN CORPUSCULAR HEMOGLOBIN 29.4 pg (28.0-32.0); MEAN CORPUSCULAR VOLUME 91.9 fL (81.0-99.0); MEAN PLATELET VOLUME 8.2 fl (7.4-10.4); MONOCYTES % 3.7 % (2.0-8.0); NEUTROPHILS % 83.2 % (40.0-76.0); PLATELET 306 x1000/uL (130-400); RED BLOOD CELL COUNT 3.31 mill/uL (4.2-5.4); RED CELL DISTRIBUTION WIDTH 15.2 % (11.6-14.6)
[2021-02-13 04:43] LABS: CHLORIDE 113 mEq/L (98-107)
[2021-02-13] MEDS: INSULIN LISPRO 100 UNITS/ML SUBCUT SCH ×4 (05:30→18:00)
[2021-02-13] MEDS: BLOOD SUGAR DIAGNOSTIC STRIP TEST SCH ×4 (05:31→18:07)
[2021-02-13] MEDS: METOCLOPRAMIDE HCL 10MG/2ML VIAL IV SCH ×4 (06:00→23:49)
[2021-02-13 08:14] LABS: BG CARBOXYHEMOGLOBIN 0.3 % (0.5-1.5); BG DEOXYHEMOGLOBIN 1.9 % (0.0-5.0); BG HCO3 ACT 32.5 mmol/L (22.0-26.0); BG METHEMOGLOBIN 0.3 % (0.0-1.5); BG OXYGEN SATURATION 98.1 % (92.0-98.5); BG OXYHEMOGLOBIN 97.5 % (94.0-97.0); BG PCO2 57.3 mmHg (35.0-45.0); BG PH 7.371 (7.350-7.450); BG PO2 133.2 mmHg (75.0-100.0); BG SAMPLE SITE RIGHT RADIAL; BG VENT MODE VENT- PRVC
[2021-02-13] MEDS: MIDODRINE HCL 5MG TABLET PO SCH ×3 (09:00→16:10)
[2021-02-13] MEDS: DEXAMETHASONE 10 MG/ML VIAL IV SCH (09:40)
[2021-02-13] MEDS: DOCUSATE SODIUM SUGAR FREE 100MG/10ML UDC NG SCH (09:40)
[2021-02-13] MEDS: PANTOPRAZOLE SODIUM 40 MG/VIAL IV SCH (09:40)
[2021-02-13] MEDS: ASCORBIC ACID 500 MG TABLET PO SCH ×2 (09:41→20:07)
[2021-02-13] MEDS: ACETAMINOPHEN 325MG TABLET PO PRN (09:41)
[2021-02-13] MEDS ORDERED: MORPHINE SULFATE 2 MG/ML CPJ (NOT FOR IM USE) IV PRN (11:15)
[2021-02-13] MEDS ORDERED: BISACODYL 10MG SUPP PR NR (11:30)
[2021-02-13] MEDS ORDERED: NALOXONE HCL 0.4MG/ML VIAL IV PRN (11:30)
[2021-02-13] MEDS: LORAZEPAM 2MG/ML CPJ IV PRN (15:42)
[2021-02-13] MEDS: ERGOCALCIFEROL 50000UNITS CAPSULE PO SCH (15:42)
[2021-02-13] MEDS: MIDAZOLAM HCL 100 MG in SODIUM CHLORIDE 0.9% 80 ML IV PRN ×2 (16:08→22:07)
[2021-02-13] MEDS ORDERED: DILTIAZEM HCL 5MG/ML 5ML VIAL IV NR (18:00)
[2021-02-13] MEDS: PROPOFOL 10MG/ML 100ML 100 ML IV PRN ×3 (18:48→22:13)
[2021-02-14] VITALS (100 sets, daily range): BP systolic 62–149; BP diastolic 34–74
[2021-02-14] MEDS: BLOOD SUGAR DIAGNOSTIC STRIP TEST SCH ×4 (00:05→17:31)
[2021-02-14] MEDS: IPRATROPIUM BROMIDE (0.02%) 0.5MG/2.5ML NEB HHN SCH ×6 (00:35→20:48)
[2021-02-14] MEDS: PROPOFOL 10MG/ML 100ML 100 ML IV PRN ×3 (01:15→06:46)
[2021-02-14 06:00] LABS: BASOPHILS % 0.2 % (0.0-2.0); EOSINOPHILS % 0.4 % (0.0-5.0); HEMATOCRIT. 27.4 % (36.0-48.0); HEMOGLOBIN. 8.7 g/dL (12.0-16.0); LYMPHOCYTES % 7.2 % (20.0-50.0); MEAN CORPUSCULAR HEMOGLOBIN 29.1 pg (28.0-32.0); MEAN CORPUSCULAR VOLUME 91.5 fL (81.0-99.0); MONOCYTES % 4.6 % (2.0-8.0); NEUTROPHILS % 87.6 % (40.0-76.0); RED CELL DISTRIBUTION WIDTH 15.2 % (11.6-14.6)
[2021-02-14 06:14] LABS: CHLORIDE 112 mEq/L (98-107)
[2021-02-14] MEDS: METOCLOPRAMIDE HCL 10MG/2ML VIAL IV SCH ×3 (06:42→17:45)
[2021-02-14] MEDS: MIDAZOLAM HCL 100 MG in SODIUM CHLORIDE 0.9% 80 ML IV PRN ×3 (06:44→22:04)
[2021-02-14] MEDS: FENTANYL CITRATE/PF 2,500 MCG in SODIUM CHLORIDE 0.9% 200 ML IV PRN ×2 (06:44→14:47)
[2021-02-14] MEDS: PANTOPRAZOLE SODIUM 40 MG/VIAL IV SCH (08:53)
[2021-02-14] MEDS: DEXAMETHASONE 10 MG/ML VIAL IV SCH (08:54)
[2021-02-14] MEDS: MIDODRINE HCL 5MG TABLET PO SCH ×3 (08:54→17:46)
[2021-02-14] MEDS: DOCUSATE SODIUM SUGAR FREE 100MG/10ML UDC NG SCH (09:02)
[2021-02-14] MEDS ORDERED: LACTULOSE 20G/30ML UDC PO NR (09:15)
[2021-02-14 09:24] LABS: BG CARBOXYHEMOGLOBIN 0.8 % (0.5-1.5); BG DEOXYHEMOGLOBIN 9.4 % (0.0-5.0); BG FRACTION INSPIRED OXYGEN 100; BG HCO3 ACT 26.7 mmol/L (22.0-26.0); BG METHEMOGLOBIN 0.3 % (0.0-1.5); BG OXYGEN SATURATION 90.5 % (92.0-98.5); BG OXYHEMOGLOBIN 89.5 % (94.0-97.0); BG PCO2 61.1 mmHg (35.0-45.0); BG PH 7.259 (7.350-7.450); BG PO2 67.8 mmHg (75.0-100.0); BG SAMPLE SITE RIGHT RADIAL; BG TOTAL HEMOGLOBIN 9.8 g/dL (12.0-18.0); BG VENT MODE PRVC-AC
[2021-02-14 09:58] LABS: MEAN PLATELET VOLUME 8.9 fl (7.4-10.4); PLATELET 276 x1000/uL (130-400)
[2021-02-14] MEDS: INSULIN LISPRO 100 UNITS/ML SUBCUT SCH ×3 (11:15→17:46)
[2021-02-14] MEDS: NOREPINEPHRINE 8 MG in DEXT 5% WATER 242 ML IV PRN (18:20)
[2021-02-15] VITALS (104 sets, daily range): BP systolic 63–203; BP diastolic 45–111
[2021-02-15] MEDS: BLOOD SUGAR DIAGNOSTIC STRIP TEST SCH ×4 (00:38→17:46)
[2021-02-15] MEDS: IPRATROPIUM BROMIDE (0.02%) 0.5MG/2.5ML NEB HHN SCH ×7 (01:00→23:00)
[2021-02-15] MEDS: METOCLOPRAMIDE HCL 10MG/2ML VIAL IV SCH ×4 (01:04→17:41)
[2021-02-15] MEDS: FENTANYL CITRATE/PF 2,500 MCG in SODIUM CHLORIDE 0.9% 200 ML IV PRN (01:05)
[2021-02-15] MEDS: INSULIN LISPRO 100 UNITS/ML SUBCUT SCH ×4 (06:00→17:46)
[2021-02-15 06:12] LABS: BASOPHILS % 0.7 % (0.0-2.0); EOSINOPHILS % 0.2 % (0.0-5.0); HEMATOCRIT. 26.5 % (36.0-48.0); HEMOGLOBIN. 8.7 g/dL (12.0-16.0); LYMPHOCYTES % 11.1 % (20.0-50.0); MEAN CORPUSCULAR HEMOGLOBIN 30.1 pg (28.0-32.0); MEAN CORPUSCULAR VOLUME 92.1 fL (81.0-99.0); MEAN PLATELET VOLUME 8.9 fl (7.4-10.4); MONOCYTES % 1.9 % (2.0-8.0); NEUTROPHILS % 86.1 % (40.0-76.0); PLATELET 242 x1000/uL (130-400); RED BLOOD CELL COUNT 2.88 mill/uL (4.2-5.4); RED CELL DISTRIBUTION WIDTH 15.4 % (11.6-14.6)
[2021-02-15 08:43] LABS: BG BASE EXCESS 1.4 mmol/L (-2.0-2.0); BG CARBOXYHEMOGLOBIN 0.3 % (0.5-1.5); BG DEOXYHEMOGLOBIN 7.4 % (0.0-5.0); BG HCO3 ACT 27.7 mmol/L (22.0-26.0); BG METHEMOGLOBIN 0.5 % (0.0-1.5); BG OXYGEN SATURATION 92.5 % (92.0-98.5); BG OXYHEMOGLOBIN 91.8 % (94.0-97.0); BG PCO2 52.2 mmHg (35.0-45.0); BG PH 7.343 (7.350-7.450); BG PO2 66.4 mmHg (75.0-100.0); BG SAMPLE SITE RIGHT RADIAL; BG TOTAL HEMOGLOBIN 10.6 g/dL (12.0-18.0); BG VENT MODE VENT- PRVC
[2021-02-15] MEDS: SODIUM CHLORIDE 0.45% 1,000 ML IV SCH ×2 (09:00→20:12)
[2021-02-15] MEDS: MIDODRINE HCL 5MG TABLET PO SCH ×3 (09:00→17:13)
[2021-02-15] MEDS: PANTOPRAZOLE SODIUM 40 MG/VIAL IV SCH (09:38)
[2021-02-15] MEDS: DOCUSATE SODIUM SUGAR FREE 100MG/10ML UDC NG SCH (09:39)
[2021-02-15] MEDS: LORAZEPAM 2MG/ML CPJ IV PRN (09:41)
[2021-02-15] MEDS: METHYLPREDNISOLONE SOD SUCC 40 MG/ML VIAL IV SCH ×3 (14:00→21:32)
[2021-02-15] MEDS ORDERED: ACETAMINOPHEN 650MG/20.3ML UDC PO PRN (21:15)
[2021-02-15] MEDS: PHENYLEPHRINE 100 MG in DEXT 5% WATER 240 ML IV PRN (23:25)
[2021-02-16] VITALS (13 sets, daily range): BP systolic 50–96; BP diastolic 13–55
[2021-02-16] MEDS: INSULIN LISPRO 100 UNITS/ML SUBCUT SCH
[2021-02-16] MEDS: BLOOD SUGAR DIAGNOSTIC STRIP TEST SCH (00:44)
[2021-02-16] MEDS: METOCLOPRAMIDE HCL 10MG/2ML VIAL IV SCH (01:25)
[2021-02-16] MEDS: IPRATROPIUM BROMIDE (0.02%) 0.5MG/2.5ML NEB HHN SCH (03:19)
[2021-02-16] MEDS: PHENYLEPHRINE 100 MG in DEXT 5% WATER 240 ML IV PRN (04:04)
[2021-02-16] MEDS: MIDAZOLAM HCL 100 MG in SODIUM CHLORIDE 0.9% 80 ML IV PRN (04:04)
[2021-02-16] MEDS: FENTANYL CITRATE/PF 2,500 MCG in SODIUM CHLORIDE 0.9% 200 ML IV PRN (04:05)
[2021-02-16 05:40] LABS: HEMOGLOBIN. 9.3 g/dL (12.0-16.0); MEAN CORPUSCULAR HEMOGLOBIN 29.4 pg (28.0-32.0); MEAN CORPUSCULAR VOLUME 95.2 fL (81.0-99.0); RED BLOOD CELL COUNT 3.15 mill/uL (4.2-5.4); RED CELL DISTRIBUTION WIDTH 16.6 % (11.6-14.6)
[2021-02-16 05:55] LABS: PHOSPHORUS 7.8 mg/dL (2.5-4.9)
[2021-02-16 09:43] LABS: NUCLEATED RED BLOOD CELLS 18 /100 WBC; PLATELET ESTIMATE NORMAL
[2021-02-16 09:45] LABS: MEAN PLATELET VOLUME 9.5 fl (7.4-10.4); PLATELET 214 x1000/uL (130-400)
== END 2021-02-16 07:39 | DRG 3 ==
LOC: ER 10:14 → MICUSO 12:27 → EDBEDREQ 14:18 → 7WST 19:48 → MICUSO 01-24 20:35
PROVIDERS: ADMIT Internal Medicine; ATTEND Internal Medicine
PROC: 5A09357 Assistance with Respiratory Ventilation, Less than 24 Consecutive Hours, Continuous Positive Airway Pressure (ICD-10-PCS; 2021-01-16)
PROC: 5A09457 Assistance with Respiratory Ventilation, 24-96 Consecutive Hours, Continuous Positive Airway Pressure (ICD-10-PCS; principal; 2021-01-18)
PROC: 5A1955Z Respiratory Ventilation, Greater than 96 Consecutive Hours (ICD-10-PCS; 2021-01-25)
PROC: B54MZZA Ultrasonography of Right Upper Extremity Veins, Guidance (ICD-10-PCS; 2021-01-25)
PROC: 05HY33Z Insertion of Infusion Device into Upper Vein, Percutaneous Approach (ICD-10-PCS; 2021-01-25)
PROC: 0BH17EZ Insertion of Endotracheal Airway into Trachea, Via Natural or Artificial Opening (ICD-10-PCS; 2021-01-25)
PROC: 0B110F4 Bypass Trachea to Cutaneous with Tracheostomy Device, Open Approach (ICD-10-PCS; 2021-02-10)
PROC: 0GBJ0ZZ Excision of Thyroid Gland Isthmus, Open Approach (ICD-10-PCS; 2021-02-10)
DX: A41.89 Other specified sepsis (principal); U07.1 COVID-19; I21.4 Non-ST elevation (NSTEMI) myocardial infarction; E43 Unspecified severe protein-calorie malnutrition; J12.82 Pneumonia due to coronavirus disease 2019; R65.21 Severe sepsis with septic shock; J80 Acute respiratory distress syndrome; J15.1 Pneumonia due to Pseudomonas; N17.0 Acute kidney failure with tubular necrosis; N39.0 Urinary tract infection, site not specified; E87.0 Hyperosmolality and hypernatremia; Z66 Do not resuscitate; E78.5 Hyperlipidemia, unspecified; E87.6 Hypokalemia; I10 Essential (primary) hypertension; D32.9 Benign neoplasm of meninges, unspecified; E66.01 Morbid (severe) obesity due to excess calories; E11.65 Type 2 diabetes mellitus with hyperglycemia; A41.50 Gram-negative sepsis, unspecified; D64.9 Anemia, unspecified; R13.12 Dysphagia, oropharyngeal phase; J98.2 Interstitial emphysema; I46.9 Cardiac arrest, cause unspecified; R74.01 Elevation of levels of liver transaminase levels; S00.80XA Unspecified superficial injury of other part of head, initial encounter; X58.XXXA Exposure to other specified factors, initial encounter; Z79.01 Long term (current) use of anticoagulants; Z82.49 Family history of ischemic heart disease and other diseases of the circulatory system; Z83.3 Family history of diabetes mellitus; Z79.84 Long term (current) use of oral hypoglycemic drugs; Z79.899 Other long term (current) drug therapy; Y93.89 Activity, other specified; Y92.89 Other specified places as the place of occurrence of the external cause; Y99.8 Other external cause status
CPT/HCPCS: 31500; 36415; 36600; 71045; 76770; 76937; 80048; 80053; 80076; 80202; 81003; 82040; 82375; 82550; 82728; 82805; 82962; 83036; 83605; 83735; 84100; 84134; 84145; 84478; 84484; 85025; 85379; 85384; 86140; 87070; 87077; 87186; 87426; 93005; 93970; 94002; 94003; 94640; 94660; 99291; A6261; C1725; C1893; C9113; C9803; J0330; J0692; J0696; J1100; J1650; J1815; J2060; J2185; J2248; J2250; J2270; J2370; J2405; J2543; J2704; J2765; J2920; J3010; J3370; J3490; J7050; J7060; J7070; J8540; U0003; U0005